=== PATIENT | female | born 1935 | race Caucasian/White ===

== ENCOUNTER → 2022-03-03 16:01 | Outpatient (CLI) | payer MEDICARE, SELFPAY ==
--- NOTE | ~2022-03-03 | XR_ITS ---
XR shoulder LT min 2V 03/03/2022 16:32 Indication: Pinched dementia syndrome of the shoulder. Procedure: 5 views left shoulder Comparison: No prior studies for comparison. 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 Osteopenia. No acute fra cture or traumatic malalignment. Visualized lung parenchyma is unremarkable. 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 Reviewed, dictated and finalized at location A. 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
== END ==
PROVIDERS: PCP Family Medicine; Visit Provider Family Medicine
DX: M75.42 Impingement syndrome of left shoulder (principal); M19.012 Primary osteoarthritis, left shoulder
CPT/HCPCS: 73030

== ENCOUNTER 2023-04-25 16:07 | Inpatient (IN) | payer MEDICARE, SELFPAY ==
[2023-04-25] VITALS (24 sets, daily range): BP systolic 131–174; BP diastolic 62–93; PULSE 61–87; RESP 14–22; TEMP 36.6–36.8; O2SAT 95–99; BMI 24.5
--- NOTE | ~2023-04-25 | XR_ITS ---
EXAMINATION: XR hip LT min 2V DATE: 04/30/2023 09:00 INDICATION: Fall. TECHNIQUE: 2 views of left hip were obtained. COMPARISON: Left hip radiographs 04/25/2023, 04/26/2023 FINDINGS: There is a subcapital fracture of left femoral neck. The distal fracture fragment demonstra fe impaction and valgus attenuation without change. There is internal fixation with 3 lag screws. Th ere is mild left hip osteoarthritis. IMPRESSION: 1. Subcapital fracture of left femoral neck status post screw fixation. 2. Mild left hip osteoarthritis. Reviewed, dictated and finalized at location A. ERSITY PRESIDENT
--- NOTE | ~2023-04-25 | CT_ITS ---
EXAMINATION: CT brain wo con DATE: 04/25/2023 16:42 INDICATION: Head injury. TECHNIQUE: Computed tomography (CT) of the head was performed without intravenous contrast. The mA wa s adjusted according to patient size. Iterative reconstruction technique was employed. The dose-lengt h product was 529.67 mGy-cm. COMPARISON: None FINDINGS: There is no intracranial hemorrhage, acute infarction, or abnormal intracranial mass lesion . There are scattered areas of low attenuation in the cerebral white matter. The ventricles are ang l in size. There are likely changes of right ocular lens replacement surgery. There is mild mucosal t hickening in the paranasal sinuses. The mastoid air cells are normal. IMPRESSION: 1. Moderate nonspecific cerebral white matter disease, which likely represents chronic small vessel i schemic disease. Reviewed, dictated and finalized at location A. DRIVING SETTER IMPRESSION: 1. Moderate nonspecific cerebral white matter disease, which likely represents chronic small vessel ischemic disease.
--- NOTE | ~2023-04-25 | XR_ITS ---
XR hip LT min 2V DATE: 04/25/2023 17:11 INDICATION: Fall. Left hip injury, pain TECHNIQUE: AP and crosstable lateral views of left hip COMPARISON: None FINDINGS: Minimally medially displaced impacted left subcapital femoral neck fracture. No evidence of left hip dislocation. Degenerative change but intact sacroiliac joints. Normal alignment at the pubic symphysis. IMPRESSION: Mildly impacted minimally medially displaced left subcapital femoral neck fracture Reviewed, dictated and finalized at location L. S AND MERCHANDISING ASSOCIATE IMPRESSION: Mildly impacted minimally medially displaced left subcapital femora l neck fracture
--- NOTE | ~2023-04-25 | XR_ITS ---
EXAMINATION: XR surgery orthopedic DATE: 04/26/2023 17:00 TICKET CHOPPER ASSEMBLER INDICATION: LEFT HIP PINNING . TECHNIQUE: 3 fluoroscopic images of the left hip were obtained during left hip pinning performed by emilio stewart surgeon. I was not present in the operating room. Fluoroscopy exposure time was 1 minute 47.2 seco nds. Air Kerma 17.466 mGy. DAP 0.3462 mGym2. COMPARISON: None FINDINGS: 3 cannulated screws fix the subcapital left femoral neck fracture into near-anatomic alignment. IMPRESSION: Fluoroscopic documentation of left hip pinning. Please refer to the operative note for complete proce dural details . Reviewed, dictated and finalized at location K. ET CHOPPER ASSEMBLER IMPRESSION: Fluoroscopic documentation of left hip pinning. Please refer to the operative n ote for complete procedural details .
--- NOTE | ~2023-04-25 | XR_ITS ---
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 RESULT: Lines, tubes, and devices: Cholecystectomy clips. Lungs and pleura: Clear. Cardiomediastinal silhouette: Stable. Other: No acute osseous or upper abdominal finding. IMPRESSION: No acute cardiopulmonary process. Reviewed, dictated and finalized at location K. WORKER HELPER
--- NOTE | ~2023-04-25 | XR_ITS ---
XR knee LT 3V DATE: 04/25/2023 16:59 INDICATION: Fall. Left knee pain. TECHNIQUE: 3 views including crosstable lateral COMPARISON: None FINDINGS: There is diffuse osteopenia. There is moderate to moderately severe tricompartment osteoarthritis, most severe at the lateral comp artment. No fracture or dislocation or significant joint effusion is evident. No periosteal reaction or bone d estruction is detected. Detail is limited but chondrocalcinosis is suggested. IMPRESSION: Tricompartment osteophytosis, particularly severe at the lateral compartment Diffuse osteopenia Suspected chondrocalcinosis No fracture or dislocation or joint effusion is detected Reviewed, dictated and finalized at location L. IFIED OPTICIAN IMPRESSION: Tricompartment osteophytosis, particularly severe at the lateral co mpartment Diffuse osteopenia Suspected chondrocalcinosis No fracture or dislocation or joint effusion is detected
--- NOTE | ~2023-04-25 | XR_ITS ---
. XR_RIBSBI_CR DATE: 04/25/2023 16:58 INDICATION: Fall 3 days ago. Bilateral rib pain. TECHNIQUE: COMPARISON: None FINDINGS: Diffuse osteopenia. Loss of height is noted at T6, T12 and L1 vertebral bodies, consistent with fractures, of uncertain a ge on this limited bilateral rib examination. Degenerative changes of the thoracic and particularly the lumbar spine. Severe glenohumeral osteoarthritis on the left, moderately severe on the right. No left or right rib fracture is detected. No pulmonary infiltrate or consolidation, pleural effusion or pneumothorax is detected. Normal heart size. Status post cholecystectomy. IMPRESSION: Fractures of undetermined age at T6, T12, L1 Degenerative changes of thoracic and lumbar spine Severe left and moderately severe right glenohumeral osteoarthritis Osteopenia No rib fracture is detected Status post cholecystectomy Reviewed, dictated and finalized at Location A. Reviewed, dictated and finalized at location L. BOY
--- NOTE | ~2023-04-25 | CT_ITS ---
EXAMINATION: CT pelvis wo con DATE: 04/25/2023 16:44 INDICATION: Patient fell 2 days ago. Left hip, pelvic pain TECHNIQUE: Computed tomography (CT) of the pelvis was performed without intravenous contrast. Automat ed exposure control and iterative reconstruction technique were employed. Exam dose: 264.76 mGy-cm t otal exam DLP. COMPARISON: None FINDINGS: Severe degenerative disc disease at L3-4, L4-5 and L5-S1. There is prominent degenerative change at the apophyseal joints with associated grade 1 anterolisthes is at L4-5 and L5-S1. There is degenerative change but no fracture or dislocation of the sacroiliac joints. The pubic symph ysis is intact. No pelvic fracture is detected. There is a mildly impacted virtually nondisplaced left subcapital femoral neck fracture. Moderate bilateral hip osteoarthritis. No hip dislocation is noted on either side. IMPRESSION: Mildly impacted virtually nondisplaced left subcapital femoral neck fracture Severe multilevel degenerative disc disease of the lumbar spine Grade 1 anterolisthesis at L4-5 and L5-S1 due to prominent degenerative change at the apophyseal join ts Reviewed, dictated and finalized at Location A. Reviewed, dictated and finalized at location L. ETING COMMUNITY LIAISON IMPRESSION: Mildly impacted virtually nondisplaced left subcapital femoral nec k fracture Severe multilevel degenerative disc disease of the lumbar spine Grade 1 anterolisthesis at L4-5 and L5-S1 due to prominent degenerative change at the apophyseal joints
--- NOTE | 2023-04-25 16:20 | ED.GENADULT ---
HPI - General Adult General Chief complaint: Fall <Geri Simms October - Last Filed: 04/25/23 16:23> Stated complaint: rib and leg pain r/t fall on monday <Geri Simms October - Last Filed: 04/25/23 16:23> Time Seen by Provider: 04/25/23 18:02 <Geri Simms October - Last Filed: 04/25/23 16:23> History of Present Illness HPI narrative: Tia Tirado is an 87 y/o female who presents wt family after a ground level fall 2 days ago. She was able to get up using a walker and limping to her chair. Family found out about the fall today and now she can barely put any weight on her left leg. Patient denies any LOC she states she fell on to the left side of her face and the left side of her body. <Geri Simms October, - Last Filed: 04/25/23 16:23> Tia Tirado is an 87 y/o female who presents with family after a ground level fall 2 days ago. She was able to get up using a walker and limping to her chair. Family found out about the fall today and now she can barely put any weight on her left leg. Patient denies any LOC she states she fell on to the left side of her face and the left side of her body. Patient denies any chest pain, shortness of breath, nausea, vomiting, abdominal pain, dysuria, hematuria, constipation, diarrhea, melena, hematochezia, fevers or chills. He also denies any headaches, dizziness, lightheadedness, blurry visions, dizziness, focal weakness, numbness and or tingling. There are no other modifying, alleviating, or precipitating factors at this time. <Dominik Dwyer MD - Last Filed: 04/25/23 18:57> Related Data Home medications: Home Medications Medication Instructions Recorded Confirmed aspirin 81 mg tablet,delayed 81 mg PO DAILY 06/09/19 11/17/22 release (Aspir-) <Geri Simms October - Last Filed: 04/25/23 16:23> Allergies/adverse reactions: Allergies Allergy/AdvReac Type Severity Reaction Status Date / Time shrimp Allergy Nausea and Verified 04/25/23 17:19 Vomiting <Geri iSmms October,N - Last Filed: 04/25/23 16:23> PMFSH Past Medical History Medical History: Medical History At risk for falls BMI 25.0-25.9,adult BMI 26.0-26.9,adult BMI 27.0-27.9,adult BMI 28.0-28.9,adult Impingement syndrome, shoulder, left Leg weakness, bilateral <Geri Simms October,N - Last Filed: 04/25/23 16:23> Family History Family History: Family History Other Acute myocardial infarction Family history of coronary artery disease <Geri Simms October, - Last Filed: 04/25/23 16:23> Social History Social History: Social History Smoking status: Never smoker Alcohol intake: never <Geri Simms October, - Last Filed: 04/25/23 16:23> Exam Narrative: General: Alert, awake, afebrile, in no acute distress. HEENT: PERRL, no rhinorrhea, no post nasal drip, oropharynx clear. Neck: Trachea midline, no JVD, no lymphadenopathy. Cardiovascular: Regular rate and rhythm, no murmurs, rubs or gallops, no peripheral edema. Respiratory: Clear to auscultation bilaterally, no tachypnea, no wheezing, no rhonchi, no rubs, no respiratory distress. Abdomen: Soft, nontender, nondistended, no rebound, no guarding, no peritoneal signs. Musculoskeletal: No joint swelling or deformity, normal muscle tone, decreased range of motion of the left lower extremity secondary to pain, intact left lower extremity DP and PT pulses, patient is neurovascularly intact. Back: No midline tenderness to palpation over the cervical, thoracic, and lumbar spine, no step-offs or deformities. Skin: No rashes or petechia, no signs of infection. Psychiatric: Alert and oriented, normal behavior and judgment for situation. Neurological: Alert and oriented to person, place, and time. Follows all commands. No focal deficits, speech is clear and fluent. <Naw
[2023-04-25 17:36] LABS: Basophils Percent Auto 0.4 % (0.2-1.2); Eosinophils Absolute Auto 0.1 K/mm3 (0-0.3); Eosinophils Percent Auto 0.8 % (0-4.4); Hematocrit 44.1 % (37.0-47.0); Hemoglobin 14.8 g/dL (12.0-15.0); Immature Granulocyte Absolute 0.04 K/mm3 (0.00-0.031); Immature Granulocyte Percent A 0.5 % (0-0.5); Lymphocytes Absolute Auto 0.88 K/mm3 (0.9-3.2); Lymphocytes Percent Auto 11.5 % (18.3-44.2); Mean Corpuscular HGB Conc 33.6 g/dl (32-36); Mean Corpuscular Hemoglobin 32.8 pg (26-34); Mean Corpuscular Volume 97.8 fl (80-100); Mean Platelet Volume 8.6 fl (7.4-10.4); Monocytes Absolute Auto 0.7 K/mm3 (0.1-0.6); Neutrophils Percent Auto 77.8 % (45.5-73.1); Platelet Count Result 164 k/mm3 (150-375); Red Blood Count 4.51 M/mm3 (4.2-5.4); Red Cell Distribution Width 12.7 % (11.5-14.5); White Blood Count 7.7 K/mm3 (4.5-10.0)
[2023-04-25 17:45] LABS: Alanine Aminotransferase 19 U/L (6-35); Albumin Level 4.4 g/dL (3.5-5.1); Alkaline Phosphatase 84 U/L (38-126); Anion Gap 10 mmol/L (8-16); Aspartate Amino Transferase 26 U/L (14-36); Bilirubin,Total 1.3 mg/dL (0.2-1.3); Blood Urea Nitrogen 12 mg/dL (7-17); Calcium 9.8 mg/dL (8.4-10.2); Carbon Dioxide 26 mmol/L (22-30); Chloride 100 mmol/L (98-107); Estimated CRCL calculation 49 ml/min; Estimated Glomerular Filt Rate > 60; Glucose 125 mg/dL (65-110); Potassium 4.4 mmol/L (3.4-5.0); Sodium 136 mmol/L (137-145)
--- NOTE | 2023-04-25 18:05 | ED.FALL ---
HPI - Fall General Chief Complaint: Fall Stated Complaint: rib and leg pain r/t fall on monday Time Seen by Provider: 04/25/23 18:02 History of Present Illness HPI Narrative: Patient is an 87-year-old female who presents to the emergency department this afternoon accompanied by her daughter due to a fall at home that occurred on Monday. Patient fell on her left side and was able to get herself back up and lip using her walker and got to a chair, however, she is able to put weight on her left lower extremity since then. She denies hitting her head, denies any loss of consciousness, and admits that the fall was purely mechanical and denies any syncopal or near syncopal episodes. Patient denies any chest pain, shortness of breath, nausea, vomiting, abdominal pain, dysuria, hematuria, constipation, diarrhea, melena, hematochezia, fevers or chills. He also denies any headaches, dizziness, lightheadedness, blurry visions, dizziness, focal weakness, numbness and or tingling. There are no other modifying, alleviating, or precipitating factors at this time. Related Data Home Medications Medication Instructions Recorded Confirmed acetaminophen 500 mg tablet 1,000 mg PO QID PRN Pain, Moderate 04/25/23 04/25/23 (Acetaminophen Extra Strength) amlodipine 5 mg-benazepril 40 mg 1 cap PO QAM 04/25/23 04/25/23 capsule atenolol 50 mg tablet 50 mg PO QAM 04/25/23 04/25/23 lorazepam 0.5 mg tablet 1 mg PO QHS anxiety 04/25/23 04/25/23 pravastatin 40 mg tablet 40 mg PO QAM 04/25/23 04/25/23 Allergies Allergy/AdvReac Type Severity Reaction Status Date / Time shrimp Allergy Nausea and Verified 04/25/23 17:19 Vomiting morphine AdvReac Nausea and Verified 04/25/23 22:21 Vomiting Review of Systems Review of Systems: All systems are reviewed and are negative unless stated otherwise in the HPI. [facility] Past Medical History Medical History At risk for falls BMI 25.0-25.9,adult BMI 26.0-26.9,adult BMI 27.0-27.9,adult BMI 28.0-28.9,adult Impingement syndrome, shoulder, left Leg weakness, bilateral Family History Family History Other Acute myocardial infarction Family history of coronary artery disease Social History Social History Smoking status: Never smoker Alcohol intake: never Substance use: never Lack of Transportation: No Lack of Food: Never True Current Housing: I Have Housing Concerned About Future Housing: No Difficulty Paying Gas/Electric Bills: No Difficulty Paying for Meds: No Currently Unemployed: No Education: Master's Degree or Higher Difficulty w/ Childcare or Family Care: No Spiritual care concerns: No Exam Narrative: General: Alert, awake, afebrile, in no acute distress. HEENT: PERRL, no rhinorrhea, no post nasal drip, oropharynx clear. Neck: Trachea midline, no JVD, no lymphadenopathy. Cardiovascular: Regular rate and rhythm, no murmurs, rubs or gallops, no peripheral edema. Respiratory: Clear to auscultation bilaterally, no tachypnea, no wheezing, no rhonchi, no rubs, no respiratory distress. Abdomen: Soft, nontender, nondistended, no rebound, no guarding, no peritoneal signs. Musculoskeletal: No joint swelling or deformity, normal muscle tone. Skin: No rashes or petechia, no signs of infection. Psychiatric: Alert and oriented, normal behavior and judgment for situation. Neurological: Alert and oriented to person, place, and time. Follows all commands. No focal deficits, speech is clear and fluent. Course Vital Signs Vital signs: Vital Signs Temperature 98.2 F 04/25/23 16:09 Pulse Rate 87 04/25/23 16:09 Respiratory Rate 18 04/25/23 16:09 Blood Pressure 156/93 H 04/25/23 16:09 Pulse Oximetry 97 04/25/23 16:09 Oxygen Delivery Room Air 04/25/23 16:09 Temperature 98.2 F
[2023-04-25] MEDS: ONDANSETRON INJ 4 MG/2 ML VIAL IV PUSH ×2 (18:18→18:59)
[2023-04-25] MEDS: MORPHINE SULFATE (*CRX) 2 MG/ML INJ IV PUSH (18:19)
--- NOTE | 2023-04-25 22:08 | ADMGEN ---
This patient, Tia Tirado, was admitted to [facility] Surg Room 332-02. Patient/family oriented to hospital policies and general routines including ID bracelet, bed and alarms, visiting hours, pain management, procedures, bathroom and other care routines, personal items, smoking policy, room service/diet, and visiting hours. Information on how to activate the Rapid Response Team has been discussed. Patient/Family are encouraged to report perceived risks to care and to ask questions if they do not understand what they are told or what they should do.
[2023-04-26] VITALS (13 sets, daily range): BP systolic 122–153; BP diastolic 56–82; PULSE 70–106; RESP 12–18; TEMP 35.9–37.3; O2SAT 95–100
--- NOTE | 2023-04-26 11:27 | PM.CNOR ---
Assessment and Plan Assessment and plan (1) Closed hip fracture: Qualifiers: Encounter type: initial encounter Laterality: left Qualified Code(s): S72.002A - Fracture of unspecified part of neck of left femur, initial encounter for closed fracture <MARCOS Vázquez - Last Filed: 04/26/23 12:20> Code(s): S72.009A - Fracture of unspecified part of neck of unspecified femur, initial encounter for closed fracture <MARCOS Vázquez - Last Filed: 04/26/23 12:20> Status: Acute <MARCOS Vázquez - Last Filed: 04/26/23 12:20> Assessment and Plan: Non displaced, valgus impacted fracture of the left hip femoral neck. Patient seen and examined. Radiographic images reviewed personally. Will benefit from percutaneous pinning of the left hip femoral neck fracture. We discussed the risks, benefits, and alternatives to surgery. <Satish Rivas MD - Last Filed: 04/26/23 16:17> History of Present Illness HPI Consult date: 04/26/23 <MARCOS Vázquez - Last Filed: 04/26/23 12:20> 04/26/23 <Satish Rivas MD - Last Filed: 04/26/23 16:17> Chief complaint: Lt hip fracture <MARCOS Vázquez - Last Filed: 04/26/23 12:20> Narrative: Patient fell Monday evening 04/23/23 in her home. She tripped on a TV tray and landed on her left side onto the carpet. She waited a few days before telling her daughter that she fell. She was able to get herself up and walk right after but the pain got worse. History of HTN and Anxiety. She typically lives at home by herself. She typically walks without assistance. No other complaints at this time. Little pain at rest. Patient's daughter states that she is a little confused from not getting up for a few days. She states she did not eat or drink much. Patient typically has no issues with her memory. <MARCOS Vázquez - Last Filed: 04/26/23 12:20> Review of Systems Review of Systems: All systems reviewed & are unremarkable except as noted in HPI and below <MARCOS Vázquez - Last Filed: 04/26/23 12:20> [facility] Past Medical History Medical History: Medical History At risk for falls BMI 25.0-25.9,adult BMI 26.0-26.9,adult BMI 27.0-27.9,adult BMI 28.0-28.9,adult Impingement syndrome, shoulder, left Leg weakness, bilateral <MARCOS Vázquez - Last Filed: 04/26/23 12:20> Family History Family History: Family History Other Acute myocardial infarction Family history of coronary artery disease <MARCOS Vázquez - Last Filed: 04/26/23 12:20> Social History Social History: Social History Smoking status: Never smoker Alcohol intake: never Substance use: never Lack of Transportation: No Lack of Food: Never True Current Housing: I Have Housing Concerned About Future Housing: No Difficulty Paying Gas/Electric Bills: No Difficulty Paying for Meds: No Currently Unemployed: No Education: Master's Degree or Higher Difficulty w/ Childcare or Family Care: No Spiritual care concerns: No <MARCOS Vázquez - Last Filed: 04/26/23 12:20> Meds Home Medications and Allergies Home medications: Home Medications Medication Instructions Recorded Confirmed Type acetaminophen 500 mg tablet 1,000 mg PO QID PRN Pain, Moderate 04/25/23 04/25/23 History (Acetaminophen Extra Strength) amlodipine 5 mg-benazepril 40 mg 1 cap PO QAM 04/25/23 04/25/23 History capsule atenolol 50 mg tablet 50 mg PO QAM 04/25/23 04/25/23 History lorazepam 0.5 mg tablet 1 mg PO QHS anxiety 04/25/23 04/25/23 History pravastatin 40 mg tablet 40 mg PO QAM 04/25/23 04/25/23 History <MARCOS Vázquez - Last Filed: 04/26/23 12:20> Allergies/Adverse reactions: Allergie
[2023-04-26] MEDS: LORazepam INJ (*CRX) 2 MG/ML VIAL 0.5 MG IV PUSH ×2 (11:29→23:21)
--- NOTE | 2023-04-26 14:50 | PC.NURSE ---
To OR via bed.
--- NOTE | 2023-04-26 15:14 | PM.IMHP ---
H&P: HPI History of Present Illness Date/Time: 04/26/23 15:14 Chief Complaint: Fall Narrative: 87 year old female fell at home over TV stand hit her L side of her body. Particularly her L rib and leg pain L/t fall on Monday. Pt carried on at home but the pain got so bad she came into ED for evaluation. Pt found to have Mildly impacted minimally medially displaced left subcapital femoral neck fracture? orthopedics consulted. CXR was nl, CT head shows moderate nonspecific cerebral white matter disease. 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 Pt has history of HTN takes lisinopril, PSH GB removal several years ago in 2019 Daughter at the bedside states she has a allergy to morphine. Pt gets nauseated and vomits when given morphine. Hypersensitive to morphine and prefers other pain medications in hospital. Review of Systems Review of Systems: L rib and L leg pain All other systems are reviewed and negative PMFSH Past Medical History Medical History At risk for falls BMI 25.0-25.9,adult BMI 26.0-26.9,adult BMI 27.0-27.9,adult BMI 28.0-28.9,adult Impingement syndrome, shoulder, left Leg weakness, bilateral Family History Family History Other Acute myocardial infarction Family history of coronary artery disease Social History Social History Smoking status: Never smoker Alcohol intake: never Substance use: never Lack of Transportation: No Lack of Food: Never True Current Housing: I Have Housing Concerned About Future Housing: No Difficulty Paying Gas/Electric Bills: No Difficulty Paying for Meds: No Currently Unemployed: No Education: Master's Degree or Higher Difficulty w/ Childcare or Family Care: No Spiritual care concerns: No Meds Home Medications and Allergies Home Medications Medication Instructions Recorded Confirmed Type acetaminophen 500 mg tablet 1,000 mg PO QID PRN Pain, Moderate 04/25/23 04/25/23 History (Acetaminophen Extra Strength) amlodipine 5 mg-benazepril 40 mg 1 cap PO QAM 04/25/23 04/25/23 History capsule atenolol 50 mg tablet 50 mg PO QAM 04/25/23 04/25/23 History lorazepam 0.5 mg tablet 1 mg PO QHS anxiety 04/25/23 04/25/23 History pravastatin 40 mg tablet 40 mg PO QAM 04/25/23 04/25/23 History Allergies Allergy/AdvReac Type Severity Reaction Status Date / Time shrimp Allergy Nausea and Verified 04/25/23 17:19 Vomiting morphine AdvReac Nausea and Verified 04/25/23 22:21 Vomiting Vital Signs Vital Signs - 24 hr 04/25/23 16:09 04/25/23 17:30 04/25/23 17:28 Temperature 36.8 C Pulse Rate 87 Respiratory Rate 18 20 Blood Pressure 156/93 H 155/77 H Pulse Oximetry 97 98 98 Oxygen Delivery Room Air 04/25/23 17:30 04/25/23 17:31 04/25/23 17:45 Temperature Pulse Rate Respiratory Rate Blood Pressure 155/77 H 158/82 H Pulse Oximetry 98 98 95 Oxygen Delivery 04/25/23 17:46 04/25/23 18:12 04/25/23 18:15 Temperature Pulse Rate Respiratory Rate Blood Pressure Pulse Oximetry 96 99 96 Oxygen Delivery 04/25/23 18:16 04/25/23 18:30 04/25/23 18:31 Temperature Pulse Rate 83 81 Respiratory Rate 20 18 Blood Pressure 174/78 H 165/74 H Pulse Oximetry 98 98 97 Oxygen Delivery 04/25/23 18:32 04/25/23 18:45 04/25/23 18:46 Temperature Pulse Rate 76 75 75 Respiratory Rate 14 16 22 H Blood Pressure Pulse Oximetry 96 99 99 Oxygen Delivery 04/25/23 19:00 04/25/23 19:01 04/25/23 19:09 Temperature Pulse Rate 65 67 64 Respiratory Rate 18 20 17 Blood Pressure Pulse Oximetry 97 96 97 Oxygen Delivery 04/25/23 19:28 04/25/23 19:52 04/25/23 20:00 Temperature Pulse Rate 64 62 66 Respiratory Rate 21 H 18 17 Blood Pressure 131/62 Pulse Oximetry Oxygen Delivery 04/25/23 20:
--- NOTE | 2023-04-26 16:17 | WPDHPUPDATE1 ---
History and Physical Update Update Date/Time: 04/26/23 16:17 History and Physical has been reviewed, including an updated exam of the patient. There are NO changes in the patient's condition. Risks, benefits, and alternatives have been discussed and questions answered. Patient agrees to proceed with procedure.
--- NOTE | 2023-04-26 16:26 | WPDANESEPPF ---
Anes - Initial Pre Proc Eval Procedure: Operation Date: 04/26/23 15:30 Proposed Procedures p Left Hip Pinning - Satish Rivas MD Date/Time: 04/26/23 16:26 Surgeon: Teresa Martino MD Pre Op Diagnosis: Lt hip fracture Patient Data Age: 87 Gender: F Height: 1.52 m Weight: 57.1 kg Last Vital Signs Temp 37.3 C 04/26/23 15:08 Pulse 101 H 04/26/23 15:08 Resp 16 04/26/23 15:08 BP 135/81 04/26/23 15:08 Pulse Ox 96 04/26/23 15:08 O2 Del Method Room Air 04/26/23 15:08 Allergies Allergy/AdvReac Type Severity Reaction Status Date / Time shrimp Allergy Nausea and Verified 04/25/23 17:19 Vomiting morphine AdvReac Nausea and Verified 04/25/23 22:21 Vomiting Home Medications Medication Instructions Recorded Confirmed Type acetaminophen 500 mg tablet 1,000 mg PO QID PRN Pain, Moderate 04/25/23 04/25/23 History (Acetaminophen Extra Strength) amlodipine 5 mg-benazepril 40 mg 1 cap PO QAM 04/25/23 04/25/23 History capsule atenolol 50 mg tablet 50 mg PO QAM 04/25/23 04/25/23 History lorazepam 0.5 mg tablet 1 mg PO QHS anxiety 04/25/23 04/25/23 History pravastatin 40 mg tablet 40 mg PO QAM 04/25/23 04/25/23 History Laboratory Tests 04/25/23 17:28 WBC 7.7 K/mm3 (4.5-10.0) RBC 4.51 M/mm3 (4.2-5.4) Hgb 14.8 g/dL (12.0-15.0) Hct 44.1 % (37.0-47.0) MCV 97.8 fl (80-100) MCH 32.8 pg (26-34) MCHC 33.6 g/dl (32-36) RDW 12.7 % (11.5-14.5) Plt Count 164 k/mm3 (150-375) MPV 8.6 fl (7.4-10.4) Immature Gran % (Auto) 0.5 % (0-0.5) Neut % (Auto) 77.8 H % (45.5-73.1) Lymph % (Auto) 11.5 L % (18.3-44.2) [place] % (Auto) 9.0 H % (2.6-8.5) Eos % (Auto) 0.8 % (0-4.4) Baso % (Auto) 0.4 % (0.2-1.2) Lymph # (Auto) 0.88 L K/mm3 (0.9-3.2) [place] # (Auto) 0.7 H K/mm3 (0.1-0.6) Eos # (Auto) 0.1 K/mm3 (0-0.3) Baso # (Auto) 0.0 K/mm3 (0.0-0.1) Abs Immat Gran (auto) 0.04 H K/mm3 (0.00-0.031) Absolute Neuts (auto) 6.0 K/mm3 (1.3-6.7) Absolute Nucleated RBC 0.0 K/mm3 (0.0-0.012) Nucleated RBC % 0.0 % (0.0-0.2) Sodium 136 L mmol/L (137-145) Potassium 4.4 mmol/L (3.4-5.0) Chloride 100 mmol/L (98-107) Carbon Dioxide 26 mmol/L (22-30) Anion Gap 10 mmol/L (8-16) BUN 12 mg/dL (7-17) Creatinine 0.50 L mg/dL (0.7-1.0) Estim Creat Clear Calc 49 ml/min Estimated GFR > 60 (59 - ) Glucose 125 H mg/dL (65-110) Calcium 9.8 mg/dL (8.4-10.2) Total Bilirubin 1.3 mg/dL (0.2-1.3) AST 26 U/L (14-36) ALT 19 U/L (6-35) Alkaline Phosphatase 84 U/L (38-126) Total Protein 8.0 g/dL (6.3-8.2) Albumin 4.4 g/dL (3.5-5.1) Blood Type A Positive Antibody Screen Negative Patient hx anesthesia problems: none Family hx anesthesia problems: none Results Review: All pre-operative results and documents have been reviewed as part of the pre-operative evaluation. [facility] Past Medical History Medical History At risk for falls BMI 25.0-25.9,adult BMI 26.0-26.9,adult BMI 27.0-27.9,adult BMI 28.0-28.9,adult Impingement syndrome, shoulder, left Leg weakness, bilateral Family History Family History Other Acute myocardial infarction Family history of coronary artery disease Social History Social History Smoking status: Never smoker Alcohol intake: never Substance use: never Lack of Transportation: No Lack of Food: Never True Current Housing: I Have Housing Concerned About Future Housing: No Difficulty Paying Gas/Electric Bills: No Difficulty Paying for Meds: No Currently Unemployed: No Education: Master's Degree or Higher Difficulty w/ Childcare or Family Care: No Spiritual care con
--- NOTE | 2023-04-26 16:42 | P.OP_ITS ---
Procedure Note - Detailed Date of Procedure 04/26/23 Pre-op Diagnosis Left hip non displace, valgus impacted femoral neck fracture Post-op Diagnosis Same Procedure Performed Closed reduction, percutaneous pinning left hip femoral neck fracture with cannulated screws. Surgeon Satish Rivas MD Anesthesia General Description of Procedure Preoperative antibiotics were given. The patient was brought to the operating room. In general anesthetic was administered. The patient was carefully placed on the fracture table. By planar fluoroscopy was used to confirm maintenance of reduction and treatment of reduction as necessary. The hip was prepped and draped in usual sterile fashion with a sterile curtain. A stab incision was created at the inferior trochanter. The guide pin was placed into the center of the femoral neck inferiorly. Two additional guide pins were placed superiorly were inverted triangle shape. Measurements were taken and the outer cortex was drilled. Three partially-threaded cannulated screws were placed. The crease incisions were closed with interrupted 4-0 Monocryl suture followed by Steri- Strips. The sterile dressing was applied. The patient was transferred to the recovery room in stable condition and extubated. There were no complications. Implants 7.0 mm Arthrex cannulated screws x 3. Estimated Blood Loss 1 Drains No Pathology None sent Complications No immediate complications Condition Stable Disposition PACU [facility] Billing Surgery - Charge Forward: Surgery Billing
[2023-04-26] MEDS: ceFAZolin 2 GM/D5W 50 ML 2 GM/50 ML BAG IVPB (16:45)
[2023-04-26] MEDS: TRANEXAMIC ACID 1,000MG/ISO100 1,000 MG/100 ML BAG 200 MG IVPB (17:01)
[2023-04-26] MEDS: BUPIVACAINE/EPINEPHRINE 0.5% 50 ML VIAL 20 ML INFILTRATE (17:14)
[2023-04-26] MEDS: LACTATED RINGERS 1,000 ML 30 ML IV CONT (17:48)
--- NOTE | 2023-04-26 18:50 | PC.NURSE ---
Back from OR via bed.
[2023-04-26] MEDS: SODIUM CHLORIDE 0.9% IV 1,000 ML 125 ML IV CONT (20:17)
[2023-04-26] MEDS: ceFAZolin 1 GM/NS 50 ML 1 GM/50 ML BAG IVPB (23:46)
[2023-04-27] VITALS: BP 168/88; PULSE 110; RESP 18; TEMP 36.6; O2SAT 94
[2023-04-27 04:00] VITALS: BP 162/79; PULSE 133; RESP 14; TEMP 37; O2SAT 94
[2023-04-27 08:43] VITALS: BP 153/84; PULSE 120; RESP 18; TEMP 37.4; O2SAT 91
[2023-04-27] MEDS: lisinopriL 20 MG TABLET 40 MG BY MOUTH (10:27)
[2023-04-27] MEDS: atenoloL 50 MG TABLET PO (10:27)
[2023-04-27] MEDS: ceFAZolin 1 GM/NS 50 ML 1 GM/50 ML BAG IVPB ×2 (10:27→16:55)
[2023-04-27] MEDS: amLODIPine BESYLATE 5 MG TABLET BY MOUTH (10:28)
--- NOTE | 2023-04-27 10:30 | PM.PNORT ---
Progress Note: A&P Assessment and Plan (1) Closed hip fracture: Qualifiers: Encounter type: initial encounter Laterality: left Qualified Code(s): S72.002A - Fracture of unspecified part of neck of left femur, initial encounter for closed fracture Code(s): S72.009A - Fracture of unspecified part of neck of unspecified femur, initial encounter for closed fracture Status: Acute Assessment and Plan: POD #1 Closed reduction, percutaneous pinning left hip femoral neck fracture with cannulated screws. Patient tolerated procedure well. She had some issues with confusion last night. Today she is very adamant that she only takes her regular home medications. Will start her on low dose aspiring twice daily for DVT prophylaxis. She states she typically takes one a day, however that is not on her medication list. May start PT/OT. Partial weight bearing with a walker. I recommend she be discharged to rehab. Her goal is to return home where she lives by her self. Ortho instructions: (DOS: 04/26/23) D/C to SNF/rehab Follow up in office in 4 weeks with xrays. Wound Care: Remove Mepilex dressing at 7 days post op. Remove steristrips at 14 days post op. May shower. No soaking. PT: Partial weight bearing with a walker. DVT prophylaxis: ASA 81 mg BID for 2 weeks then resume one per day dose. Pain medication: Tylenol. Subjective Subjective Date/Time Seen: 04/27/23 10:30 Interval history: Patient resting comfortably in a chair at the time of my visit. No pain at rest. Minimal calf tenderness. No swelling. No thigh pain. No other complaints. Review of Systems Review of Systems: All systems reviewed & are unremarkable except as noted in HPI and below Exam Narrative: 87 y/o normal weight female. Patient is alert and oriented x4. Resting comfortably in bed. No acute distress. dressing dry and intact without drainage. No erythema or ecchymosis. No rashes or lesions noted. Warm, normal appearing skin. Mild Tenderness at left hip. No deformity. Calf nontender. Distal pulses palpable. Normal capillary refill. Patient able to move and wiggle toes. Light touch sensation intact. Objective Data Vital Signs Vital Signs: Vital Signs - 24 hr 04/26/23 15:08 04/26/23 17:48 04/26/23 18:00 Temperature 99.2 F 98.6 F Pulse Rate 101 H 106 H 77 Respiratory Rate 16 12 12 Blood Pressure 135/81 153/70 H 122/56 L Pulse Oximetry 96 99 100 Oxygen Delivery Room Air Simple Face Mask Simple Face Mask Oxygen Flow Rate 8 8 04/26/23 18:10 04/26/23 18:15 04/26/23 18:30 Temperature Pulse Rate 93 94 Respiratory Rate 14 18 Blood Pressure 136/69 124/62 Pulse Oximetry 98 96 96 Oxygen Delivery Room Air Room Air Room Air Oxygen Flow Rate 04/26/23 18:40 04/26/23 18:50 04/26/23 19:05 Temperature 97.7 F 98 F Pulse Rate 92 97 96 Respiratory Rate 14 16 16 Blood Pressure 134/68 151/65 H 143/67 H Pulse Oximetry 95 95 96 Oxygen Delivery Room Air Oxygen Flow Rate 04/26/23 19:35 04/26/23 20:35 04/27/23 00:00 Temperature 97.2 F L 97 F L 97.8 F Pulse Rate 93 91 110 H Respiratory Rate 14 14 18 Blood Pressure 144/71 H 140/76 168/88 H Pulse Oximetry 98 95 94 Oxygen Delivery Oxygen Flow Rate 04/26/23 20:00 04/27/23 04:00 04/27/23 08:51 Temperature 98.6 F Pulse Rate 133 H Respiratory Rate 14 Blood Pressure 162/79 H Pulse Oximetry 94 Oxygen Delivery Room Air Room Air Oxygen Flow Rate 04/27/23 08:43 Temperature 99.4 F Pulse Rate 120 H Respiratory Rate 18 Blood Pressure 153/84 H Pulse Oximetry 91 Oxygen Delivery Oxygen Flow Rate Intake/Output Intake/Output: Intake & Output 04/24/23 04/25/23 04/26/23 04/27/23 23:59 23:59 23:59 23:59 Intake Total 300 200 Output Total 425 950 Balance -125 -750 Meds/Results Medications: Active Medications Generic Name Dose Route Start Last Admin Trade Name Freq PRN Reason Stop Dose Admin Amlodipine
--- NOTE | 2023-04-27 11:16 | WPDANESPN ---
Anes - Prog Note Post-Op Date/Time: 04/27/23 11:16 Cardiovascular status: normal Respiratory status: normal Airway patency: baseline Mental status: baseline Post-Op hydration status: normal Vital Signs: Last Vital Signs Temp 37.4 C 04/27/23 08:43 Pulse 120 H 04/27/23 08:43 Resp 18 04/27/23 08:43 BP 153/84 H 04/27/23 08:43 Pulse Ox 91 04/27/23 08:43 O2 Del Method Room Air 04/27/23 08:51 O2 Flow Rate 8 04/26/23 18:00 Pain Score (VAS): 2/10 I/O: Intake & Output 04/26/23 04/27/23 04/27/23 23:59 07:59 15:59 Intake Total 300 200 Output Total 950 Balance 300 -750 Laboratory Tests 04/25/23 17:28 04/25/23 17:28 Post-procedural complaints: none Patient Feedback: Patient satisfied with anesthetic care.
[2023-04-27 12:26] VITALS: BP 150/85; PULSE 94; RESP 16; TEMP 36.8; O2SAT 95
--- NOTE | 2023-04-27 14:01 | PM.IMPN ---
Progress Note: A&P Assessment and Plan (1) Closed hip fracture: Qualifiers: Encounter type: initial encounter Laterality: left Qualified Code(s): S72.002A - Fracture of unspecified part of neck of left femur, initial encounter for closed fracture Code(s): S72.009A - Fracture of unspecified part of neck of unspecified femur, initial encounter for closed fracture Status: Acute Assessment and Plan: Accidental fall on the L side XRay shows - Mildly impacted minimally medially displaced left subcapital femoral neck fracture? sp Closed reduction, percutaneous pinning left hip femoral neck fracture with cannulated screws. (2) Falls: Qualifiers: Encounter type: initial encounter Qualified Code(s): W19.XXXA - Unspecified fall, initial encounter Code(s): W19.XXXA - Unspecified fall, initial encounter Status: Acute Assessment and Plan: PT/ OT Pain control Pt has allergies to morphine sp Closed reduction, percutaneous pinning left hip femoral neck fracture with cannulated screws. 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 on this (3) Essential (primary) hypertension: Code(s): I10 - Essential (primary) hypertension Status: Acute Assessment and Plan: BP stable on lisinopril Plan DVT prop ASA Subjective Date/time seen: 04/27/23 14:01 Interval history: Pt pod day 1 doing well sitting in chair No specific complaints sp left subcapital femoral neck pinning Bp is 150/85 today Pt requesting to go to rehab once she is better Review of Systems Review of Systems: L rib and L leg pain All systems reviewed & are unremarkable except as noted in HPI and below Constitutional: Constitutional: Denies excessive sweating, Denies fatigue, Denies frequent falls and Denies headache(s) ENT: Denies headache(s) Cardiovascular: Cardiovascular: Denies chest pain, Denies irregular heart rhythm, Denies dyspnea and Denies dyspnea on exertion Respiratory: Respiratory: Denies cough, Denies hemoptysis, Denies dyspnea, Denies dyspnea on exertion and Denies wheezing Gastrointestinal: Gastrointestinal: Denies abdominal pain and Denies change in bowel habits Musculoskeletal: Comments: SP closed reduction, percutaneous pinning left hip femoral neck fracture with cannulated screws. Neurologic: Denies frequent falls, Denies headache(s), Denies numbness and Denies convulsions Psychiatric: Psychiatric: Denies hallucinations and Denies tactile hallucinations Endocrine: Endocrine: Denies excessive sweating, Denies fatigue and Denies flushing Allergic/Immunologic: Allergic/Immunologic: Denies wheezing Exam Const: General: cooperative, healthy appearing and overweight; No in distress Nutritional Appearance: overweight Orientation/consciousness: oriented to person HENMT: Head: normal to inspection Resp: Effort & Inspection: no respiratory distress Auscultation: no rhonchi and no wheezes Cardio: Rate: regular rate Rhythm: regular rhythm GI: Inspection: normal to inspection Auscultation: normal bowel sounds Neuro: General: oriented to person Extrem: Other: Severe L hip pain Objective Data Vital Signs Vital Signs: Vital Signs - 24 hr 04/26/23 15:08 04/26/23 17:48 04/26/23 18:00 Temperature 37.3 C 37.0 C Pulse Rate 101 H 106 H 77 Respiratory Rate 16 12 12 Blood Pressure 135/81 153/70 H 122/56 L Pulse Oximetry 96 99 100 Oxygen Delivery Room Air Simple Face Mask Simple Face Mask Oxygen Flow Rate 8 8 04/26/23 18:10 04/26/23 18:15 04/26/23 18:30 Temperature Pulse Rate 93 94 Respiratory Rate 14 18 Blood Pressure 136/69 124/62 Pulse Oximetry 98 96 96 Oxygen Delivery Room Air Room Air Room Air Oxygen Flow Rate 04/26/23 18:40 04/26/23 18:50 04/26/23 19:05 Temperature 36.5 C 36.6 C Pulse Rate 92 97 96 Respiratory Rate 14 16 16 Blood Pressure 134/68 151/65 H 143/67 H Pulse Oximetry 95
[2023-04-27] MEDS: ASPIRIN 81 MG ENTERIC TABLET PO (16:55)
[2023-04-27 22:00] VITALS: BP 129/73; PULSE 84; RESP 14; TEMP 36.5; O2SAT 94
[2023-04-27] MEDS: LORazepam INJ (*CRX) 2 MG/ML VIAL 0.5 MG IV PUSH (23:13)
[2023-04-27] MEDS: KETOROLAC 15 MG/ML VIAL (*BKC) IV PUSH (23:13)
[2023-04-28 06:00] VITALS: BP 136/73; PULSE 78; RESP 20; TEMP 36.1; O2SAT 99
--- NOTE | 2023-04-28 06:53 | PC.NURSE ---
pt has not voided yet after catheter removal around 2300 last night, though patient has not had much intake this shift. pt bladder scanned and found to only have 5mL in bladder
[2023-04-28] MEDS: SENNA/DOCUSATE SODIUM TABLET 2 TAB PO ×2 (08:58→17:20)
[2023-04-28 09:02] VITALS: PULSE 96
[2023-04-28] MEDS: atenoloL 50 MG TABLET PO (09:02)
[2023-04-28] MEDS: ASPIRIN 81 MG ENTERIC TABLET PO ×2 (09:02→17:20)
[2023-04-28] MEDS: lisinopriL 20 MG TABLET 40 MG BY MOUTH (09:04)
[2023-04-28] MEDS: polyethylene glycoL 3350 17 GM POWD.PACK PO (09:04)
[2023-04-28] MEDS: amLODIPine BESYLATE 5 MG TABLET BY MOUTH (09:04)
--- NOTE | 2023-04-28 13:05 | PM.PNORT ---
Progress Note: A&P Assessment and Plan (1) Closed hip fracture: Qualifiers: Encounter type: initial encounter Laterality: left Qualified Code(s): S72.002A - Fracture of unspecified part of neck of left femur, initial encounter for closed fracture Code(s): S72.009A - Fracture of unspecified part of neck of unspecified femur, initial encounter for closed fracture Status: Acute Assessment and Plan: POD #2 Closed reduction, percutaneous pinning left hip femoral neck fracture with cannulated screws. Patient sleeping at the time of my visit. Spoke with patients daughter. Patient is having increased sundowning and confusion at night. That is not typical for her. We discussed her recovery. I recommend she go to rehab before returning home. Daughter would like her to go to her house before returning home. I agree. Continue PT/OT. Partial weight bearing with a walker. Ortho instructions: (DOS: 04/26/23) D/C to SNF/rehab Follow up in office in 4 weeks with xrays. Wound Care: Remove Mepilex dressing at 7 days post op. Remove steristrips at 14 days post op. May shower. No soaking. PT: Partial weight bearing with a walker. DVT prophylaxis: ASA 81 mg BID for 2 weeks then resume one per day dose. Pain medication: Tylenol. Subjective Subjective Date/Time Seen: 04/28/23 13:05 Interval history: Patient sleeping at the time of my visit. Spoke with patient's daughter. Patient had some sundowning and confusion last night. She had a had time getting to sleep. She is very concerned about going to a prison or rehab. Review of Systems Review of Systems: ROS unobtainable: Yes other (Patient sleeping. Daughter states patient has had increased confusion. ) Exam Narrative: 87 y/o normal weight female. Resting comfortably in bed. Sleeping. No acute distress. Dressing dry and intact without drainage. No erythema or ecchymosis. No rashes or lesions noted. Warm, normal appearing skin. No deformity. No distal swelling. Distal pulses palpable. Normal capillary refill. Objective Data Vital Signs Vital Signs: Vital Signs - 24 hr 04/27/23 20:00 04/27/23 22:00 04/28/23 06:00 Temperature 97.7 F 97.0 F L Pulse Rate 84 78 Respiratory Rate 14 20 Blood Pressure 129/73 136/73 Pulse Oximetry 94 99 Oxygen Delivery Room Air 04/28/23 09:02 04/28/23 09:00 Temperature Pulse Rate 96 Respiratory Rate Blood Pressure Pulse Oximetry Oxygen Delivery Room Air Intake/Output Intake/Output: Intake & Output 04/25/23 04/26/23 04/27/23 04/28/23 23:59 23:59 23:59 23:59 Intake Total 300 730 200 Output Total 425 1650 75 Balance -125 -920 125 Meds/Results Medications: Active Medications Generic Name Dose Route Start Last Admin Trade Name Freq PRN Reason Stop Dose Admin Amlodipine Besylate 5 mg 04/27/23 09:00 04/28/23 09:04 Amlodipine Besylate 5 Mg Tablet BY MOUTH 5 mg QAM JOSE Administration Aspirin 81 mg 04/27/23 17:00 04/28/23 09:02 Aspirin 81 Mg Enteric Tablet PO 81 mg BID JOSE Administration Atenolol 50 mg 04/27/23 09:00 04/28/23 09:02 Atenolol 50 Mg Tablet PO 50 mg QAM JOSE Administration Fentanyl Citrate 25 mcg 04/26/23 16:26 Fentanyl Citrate Inj (*Crx) 100 Mcg/2 Ml Vial IV PUSH Q2M PRN Pain Ketorolac Tromethamine 15 mg 04/26/23 12:04 04/27/23 23:13 Ketorolac 15 Mg/Ml Vial (*Bkc) IV PUSH 15 mg Q6H PRN Administration Pain Rated 4-6 Lisinopril 40 mg 04/27/23 09:00 04/28/23 09:04 Lisinopril 20 Mg Tablet BY MOUTH 40 mg QAM JOSE Administration Lorazepam 0.5 mg 04/26/23 11:05 04/27/23 23:13 Lorazepam Inj (*Crx) 2 Mg/Ml Vial IV PUSH 0.5 mg Q8H PRN Administration Anxiety Naloxone HCl 0.1 mg 04/26/23 18:58 Naloxone Hcl 0.4 Mg/Ml Vial IV PUSH Q2M PRN Opiate Reversal Ondansetron HCl 4 mg 04/26/23 16:26 Ondansetron Inj 4 Mg/2 Ml Vial IV PUSH ONCE PRN
[2023-04-28 14:00] VITALS: BP 124/70; PULSE 79; RESP 18; TEMP 36.9; O2SAT 94
--- NOTE | 2023-04-28 15:12 | PM.IMPN ---
Progress Note: A&P Assessment and Plan (1) Closed hip fracture: Qualifiers: Encounter type: initial encounter Laterality: left Qualified Code(s): S72.002A - Fracture of unspecified part of neck of left femur, initial encounter for closed fracture Code(s): S72.009A - Fracture of unspecified part of neck of unspecified femur, initial encounter for closed fracture Status: Acute Assessment and Plan: Accidental fall on the L side XRay shows - Mildly impacted minimally medially displaced left subcapital femoral neck fracture? sp Closed reduction, percutaneous pinning left hip femoral neck fracture with cannulated screws on 04/26/23. DVT prophylaxis aspirin 81 b.i.d. for 2 weeks then 1 per day for orthopedics Awaiting SNF placement Follow-up with Orthopedics (2) Falls: Qualifiers: Encounter type: initial encounter Qualified Code(s): W19.XXXA - Unspecified fall, initial encounter Code(s): W19.XXXA - Unspecified fall, initial encounter Status: Acute Assessment and Plan: PT/ OT Pain control Pt has allergies to morphine sp Closed reduction, percutaneous pinning left hip femoral neck fracture with cannulated screws. 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 Feeling well. No nausea vomiting. Pain is controlled. Review of Systems Review of Systems: All systems reviewed & are unremarkable except as noted in HPI and below Exam Narrative: GENERAL: The patient is well developed, not in acute distress HEENT: Nonicteric sclerae, PERRLA, EOMI. Oropharynx clear. Moist mucous membranes. Conjunctivae appear well perfused. CHEST: Chest wall is nontender. HEART: Regular rate and rhythm without murmur, rubs, or gallops LUNGS: Clear to auscultation bilaterally. no respiratory distress ABDOMEN: Soft, positive bowel sounds, non-tender, no organomegaly. SKIN: No rash, no excessive bruising, petechiae, or purpura. NEUROLOGIC: Cranial nerves II-XII intact, alert and oriented x 3, no gross motor deficits EXTREMITIES: no edema, cyanosis or clubbing left hip with dressing which is clean dry and intact Objective Data Vital Signs Vital Signs: Vital Signs - 24 hr 04/27/23 20:00 04/27/23 22:00 04/28/23 06:00 Temperature 97.7 F 97.0 F L Pulse Rate 84 78 Respiratory Rate 14 20 Blood Pressure 129/73 136/73 Pulse Oximetry 94 99 Oxygen Delivery Room Air 04/28/23 09:02 04/28/23 09:00 Temperature Pulse Rate 96 Respiratory Rate Blood Pressure Pulse Oximetry Oxygen Delivery Room Air Intake/Output Intake/Output: Intake & Output 04/25/23 04/26/23 04/27/23 04/28/23 23:59 23:59 23:59 23:59 Intake Total 300 730 200 Output Total 425 1650 75 Balance -125 -920 125 Meds/Results Medications: Active Medications Generic Name Dose Route Start Last Admin Trade Name Jaimeq PRN Reason Stop Dose Admin Amlodipine Besylate 5 mg 04/27/23 09:00 04/28/23 09:04 Amlodipine Besylate 5 Mg Tablet BY MOUTH 5 mg QAM JOSE Administration Aspirin 81 mg 04/27/23 17:00 04/28/23 09:02 Aspirin 81 Mg Enteric Tablet PO 81 mg BID JOSE Administration Atenolol 50 mg 04/27/23 09:00 04/28/23 09:02 Atenolol 50 Mg Tablet PO 50 mg QAM JOSE Administration Fentanyl Citrate 25 mcg 04/26/23 16:26 Fentanyl Citrate Inj (*Crx) 100 Mcg/2 Ml Vial IV PUSH Q2M PRN Pain Ketorolac Tromethamine 15 mg 04/26/23 12:04 04/27/23 23:13 Ketorolac 15 Mg/Ml Via
[2023-04-28 20:00] VITALS: PULSE 79; RESP 18; O2SAT 94
[2023-04-28 21:21] VITALS: BP 112/82; PULSE 85; RESP 18; TEMP 36.5; O2SAT 94
[2023-04-28] MEDS: LORazepam (*CRX) 0.5 MG TABLET PO (22:46)
[2023-04-28 23:14] VITALS: O2SAT 94
[2023-04-29 05:56] VITALS: BP 131/68; PULSE 76; RESP 14; TEMP 36.2; O2SAT 94
[2023-04-29 07:04] LABS: Basophils Percent Auto 0.3 % (0.2-1.2); Eosinophils Absolute Auto 0.2 K/mm3 (0-0.3); Hematocrit 34.8 % (37.0-47.0); Hemoglobin 11.7 g/dL (12.0-15.0); Immature Granulocyte Absolute 0.04 K/mm3 (0.00-0.031); Immature Granulocyte Percent A 0.5 % (0-0.5); Lymphocytes Absolute Auto 1.13 K/mm3 (0.9-3.2); Lymphocytes Percent Auto 14.3 % (18.3-44.2); Mean Corpuscular HGB Conc 33.6 g/dl (32-36); Mean Platelet Volume 8.8 fl (7.4-10.4); Monocytes Absolute Auto 0.9 K/mm3 (0.1-0.6); Monocytes Percent Auto 11.6 % (2.6-8.5); Neutrophils Absolute Auto 5.6 K/mm3 (1.3-6.7); Neutrophils Percent Auto 71.3 % (45.5-73.1); Platelet Count Result 158 k/mm3 (150-375); Red Blood Count 3.55 M/mm3 (4.2-5.4); Red Cell Distribution Width 12.2 % (11.5-14.5); White Blood Count 7.9 K/mm3 (4.5-10.0)
[2023-04-29 07:09] LABS: Alanine Aminotransferase 25 U/L (6-35); Albumin Level 3.2 g/dL (3.5-5.1); Alkaline Phosphatase 93 U/L (38-126); Anion Gap 8 mmol/L (8-16); Aspartate Amino Transferase 32 U/L (14-36); Bilirubin,Total 0.9 mg/dL (0.2-1.3); Blood Urea Nitrogen 18 mg/dL (7-17); Calcium 8.6 mg/dL (8.4-10.2); Carbon Dioxide 27 mmol/L (22-30); Chloride 100 mmol/L (98-107); Estimated CRCL calculation 42 ml/min; Estimated Glomerular Filt Rate > 60; Glucose 102 mg/dL (65-110); Magnesium 1.7 mg/dL (1.6-2.3); Potassium 3.4 mmol/L (3.4-5.0); Sodium 135 mmol/L (137-145)
[2023-04-29 08:43] VITALS: PULSE 92
[2023-04-29] MEDS: atenoloL 50 MG TABLET PO (08:43)
[2023-04-29] MEDS: lisinopriL 20 MG TABLET 40 MG BY MOUTH (08:44)
[2023-04-29] MEDS: amLODIPine BESYLATE 5 MG TABLET BY MOUTH (08:44)
[2023-04-29] MEDS: polyethylene glycoL 3350 17 GM POWD.PACK PO (08:44)
[2023-04-29] MEDS: ASPIRIN 81 MG ENTERIC TABLET PO ×2 (08:44→17:12)
[2023-04-29] MEDS: SENNA/DOCUSATE SODIUM TABLET 2 TAB PO ×2 (08:44→17:12)
[2023-04-29] MEDS: ACETAMINOPHEN 325 MG TABLET 650 MG PO (10:22)
[2023-04-29 14:00] VITALS: BP 117/58; PULSE 71; RESP 16; TEMP 36.1; O2SAT 94
--- NOTE | 2023-04-29 14:23 | PM.IMPN ---
Progress Note: A&P Assessment and Plan (1) Closed hip fracture: Qualifiers: Encounter type: initial encounter Laterality: left Qualified Code(s): S72.002A - Fracture of unspecified part of neck of left femur, initial encounter for closed fracture Code(s): S72.009A - Fracture of unspecified part of neck of unspecified femur, initial encounter for closed fracture Status: Acute Assessment and Plan: Accidental fall on the L side XRay shows - Mildly impacted minimally medially displaced left subcapital femoral neck fracture? sp Closed reduction, percutaneous pinning left hip femoral neck fracture with cannulated screws on 04/26/23. DVT prophylaxis aspirin 81 b.i.d. for 2 weeks then 1 per day for orthopedics Awaiting SNF placement Follow-up with Orthopedics (2) Falls: Qualifiers: Encounter type: initial encounter Qualified Code(s): W19.XXXA - Unspecified fall, initial encounter Code(s): W19.XXXA - Unspecified fall, initial encounter Status: Acute Assessment and Plan: PT/ OT Pain control Pt has allergies to morphine sp Closed reduction, percutaneous pinning left hip femoral neck fracture with cannulated screws. 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 Awaiting insurance authorization for rehab placement.. Review of Systems Review of Systems: All systems reviewed & are unremarkable except as noted in HPI and below Exam Narrative: GENERAL: The patient is well developed, not in acute distress HEENT: Nonicteric sclerae, PERRLA, EOMI. Oropharynx clear. Moist mucous membranes. Conjunctivae appear well perfused. CHEST: Chest wall is nontender. HEART: Regular rate and rhythm without murmur, rubs, or gallops LUNGS: Clear to auscultation bilaterally. no respiratory distress ABDOMEN: Soft, positive bowel sounds, non-tender, no organomegaly. SKIN: No rash, no excessive bruising, petechiae, or purpura. NEUROLOGIC: Cranial nerves II-XII intact, alert and oriented x 3, no gross motor deficits EXTREMITIES: no edema, cyanosis or clubbing left hip with dressing which is clean dry and intact Objective Data Vital Signs Vital Signs: Vital Signs - 24 hr 04/28/23 20:00 04/28/23 21:21 04/28/23 23:14 Temperature 97.7 F Pulse Rate 79 85 Respiratory Rate 18 18 Blood Pressure 112/82 Pulse Oximetry 94 94 94 Oxygen Delivery Room Air Room Air 04/29/23 05:56 04/29/23 08:43 04/29/23 08:45 Temperature 97.2 F L Pulse Rate 76 92 Respiratory Rate 14 Blood Pressure 131/68 Pulse Oximetry 94 Oxygen Delivery Room Air Intake/Output Intake/Output: Intake & Output 04/26/23 04/27/23 04/28/23 04/29/23 23:59 23:59 23:59 23:59 Intake Total 300 730 740 220 Output Total 425 1650 75 Balance -125 -920 665 220 Meds/Results Medications: Active Medications Generic Name Dose Route Start Last Admin Trade Name Freq PRN Reason Stop Dose Admin Acetaminophen 650 mg 04/29/23 10:03 04/29/23 10:22 Acetaminophen 325 Mg Tablet PO 650 mg Q6H PRN Administration Mild Pain (1-3) or Fever Amlodipine Besylate 5 mg 04/27/23 09:00 04/29/23 08:44 Amlodipine Besylate 5 Mg Tablet BY MOUTH 5 mg QAM JOSE Administration Aspirin 81 mg 04/27/23 17:00 04/29/23 08:44 Aspirin 81 Mg Enteric Tablet PO 81 mg BID JOSE Administration Atenolol 50 mg 04/27/23 09:00 04/29/23 08:43 Atenolol 50 Mg Tablet PO 50 mg QAM JOSE Administration Fentanyl Citra
[2023-04-29 21:54] VITALS: BP 136/67; PULSE 78; RESP 18; TEMP 37.1; O2SAT 95
[2023-04-29] MEDS: LORazepam (*CRX) 1 MG TABLET PO (22:21)
[2023-04-30 03:22] VITALS: BP 154/78; PULSE 102; RESP 18; TEMP 36.1; O2SAT 98
[2023-04-30 06:00] VITALS: BP 129/56; PULSE 81; RESP 18; TEMP 36.4; O2SAT 99
[2023-04-30] MEDS: ACETAMINOPHEN 325 MG TABLET 650 MG PO ×2 (08:07→20:49)
[2023-04-30] MEDS: amLODIPine BESYLATE 5 MG TABLET BY MOUTH (08:09)
[2023-04-30] MEDS: PRAVASTATIN SODIUM 20 MG TABLET 40 MG PO (08:09)
[2023-04-30] MEDS: lisinopriL 20 MG TABLET 40 MG BY MOUTH (08:09)
[2023-04-30 08:10] VITALS: PULSE 84
[2023-04-30] MEDS: atenoloL 50 MG TABLET PO (08:10)
[2023-04-30] MEDS: ASPIRIN 81 MG ENTERIC TABLET PO ×2 (08:10→16:59)
[2023-04-30] MEDS: SENNA/DOCUSATE SODIUM TABLET 2 TAB PO ×2 (08:10→16:59)
[2023-04-30] MEDS: polyethylene glycoL 3350 17 GM POWD.PACK PO (08:11)
--- NOTE | 2023-04-30 13:43 | PM.IMPN ---
Progress Note: A&P Assessment and Plan (1) Closed hip fracture: Qualifiers: Encounter type: initial encounter Laterality: left Qualified Code(s): S72.002A - Fracture of unspecified part of neck of left femur, initial encounter for closed fracture Code(s): S72.009A - Fracture of unspecified part of neck of unspecified femur, initial encounter for closed fracture Status: Acute Assessment and Plan: Accidental fall on the L side XRay shows - Mildly impacted minimally medially displaced left subcapital femoral neck fracture? sp Closed reduction, percutaneous pinning left hip femoral neck fracture with cannulated screws on 04/26/23. DVT prophylaxis aspirin 81 b.i.d. for 2 weeks then 1 per day for orthopedics Awaiting SNF placement Follow-up with Orthopedics Fell out of bed 04/30/2023: X-rays negative for any new injury. This was mechanical (2) Falls: Qualifiers: Encounter type: initial encounter Qualified Code(s): W19.XXXA - Unspecified fall, initial encounter Code(s): W19.XXXA - Unspecified fall, initial encounter Status: Acute Assessment and Plan: PT/ OT Pain control Pt has allergies to morphine sp Closed reduction, percutaneous pinning left hip femoral neck fracture with cannulated screws. 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 X-rays negative. No fever chills Review of Systems Review of Systems: All systems reviewed & are unremarkable except as noted in HPI and below Exam Narrative: GENERAL: The patient is well developed, not in acute distress HEENT: Nonicteric sclerae, PERRLA, EOMI. Oropharynx clear. Moist mucous membranes. Conjunctivae appear well perfused. CHEST: Chest wall is nontender. HEART: Regular rate and rhythm without murmur, rubs, or gallops LUNGS: Clear to auscultation bilaterally. no respiratory distress ABDOMEN: Soft, positive bowel sounds, non-tender, no organomegaly. SKIN: No rash, no excessive bruising, petechiae, or purpura. NEUROLOGIC: Cranial nerves II-XII intact, alert and oriented x 3, no gross motor deficits EXTREMITIES: no edema, cyanosis or clubbing left hip with dressing which is clean dry and intact Objective Data Vital Signs Vital Signs: Vital Signs - 24 hr 04/29/23 14:00 04/29/23 21:54 04/29/23 20:00 Temperature 97 F L 98.7 F Pulse Rate 71 78 Respiratory Rate 16 18 Blood Pressure 117/58 L 136/67 Pulse Oximetry 94 95 Oxygen Delivery Room Air 04/30/23 03:22 04/30/23 06:00 04/30/23 08:10 Temperature 97 F L 97.6 F Pulse Rate 102 H 81 84 Respiratory Rate 18 18 Blood Pressure 154/78 H 129/56 L Pulse Oximetry 98 99 Oxygen Delivery 04/30/23 08:10 Temperature Pulse Rate Respiratory Rate Blood Pressure Pulse Oximetry Oxygen Delivery Room Air Intake/Output Intake/Output: Intake & Output 04/27/23 04/28/23 04/29/23 04/30/23 23:59 23:59 23:59 23:59 Intake Total 730 740 460 100 Output Total 1650 75 Balance -920 665 460 100 Meds/Results Medications: Active Medications Generic Name Dose Route Start Last Admin Trade Name Freq PRN Reason Stop Dose Admin Acetaminophen 650 mg 04/29/23 10:03 04/30/23 08:07 Acetaminophen 325 Mg Tablet PO 650 mg Q6H PRN Administration Mild Pain (1-3) or Fever Acetaminophen 1,000 mg 04/29/23 14:24 Acetaminophen 500 Mg Tablet PO QID PRN Pain, Moderate Amlodipine Besylate 5 mg 04/27
[2023-04-30 14:00] VITALS: BP 110/71; PULSE 77; RESP 16; TEMP 36.8; O2SAT 93
[2023-04-30] MEDS: LORazepam (*CRX) 1 MG TABLET PO (20:49)
[2023-04-30 22:00] VITALS: BP 128/60; PULSE 81; RESP 14; TEMP 35.9; O2SAT 97
[2023-05-01 06:00] VITALS: BP 123/71; PULSE 74; RESP 14; TEMP 35.8; O2SAT 94
[2023-05-01 07:51] LABS: Basophils Percent Auto 0.4 % (0.2-1.2); Eosinophils Absolute Auto 0.3 K/mm3 (0-0.3); Eosinophils Percent Auto 5.8 % (0-4.4); Hematocrit 36.4 % (37.0-47.0); Hemoglobin 11.9 g/dL (12.0-15.0); Immature Granulocyte Absolute 0.03 K/mm3 (0.00-0.031); Immature Granulocyte Percent A 0.6 % (0-0.5); Lymphocytes Absolute Auto 1.08 K/mm3 (0.9-3.2); Mean Corpuscular HGB Conc 32.7 g/dl (32-36); Mean Corpuscular Hemoglobin 32.6 pg (26-34); Mean Corpuscular Volume 99.7 fl (80-100); Mean Platelet Volume 8.3 fl (7.4-10.4); Monocytes Absolute Auto 0.5 K/mm3 (0.1-0.6); Monocytes Percent Auto 9.5 % (2.6-8.5); Neutrophils Absolute Auto 3.2 K/mm3 (1.3-6.7); Neutrophils Percent Auto 62.7 % (45.5-73.1); Platelet Count Result 203 k/mm3 (150-375); Red Blood Count 3.65 M/mm3 (4.2-5.4); Red Cell Distribution Width 12.3 % (11.5-14.5); White Blood Count 5.2 K/mm3 (4.5-10.0)
[2023-05-01 08:03] LABS: Alanine Aminotransferase 24 U/L (6-35); Albumin Level 3.3 g/dL (3.5-5.1); Alkaline Phosphatase 84 U/L (38-126); Anion Gap 7 mmol/L (8-16); Aspartate Amino Transferase 26 U/L (14-36); Bilirubin,Total 0.7 mg/dL (0.2-1.3); Blood Urea Nitrogen 15 mg/dL (7-17); Calcium 8.9 mg/dL (8.4-10.2); Carbon Dioxide 29 mmol/L (22-30); Chloride 101 mmol/L (98-107); Estimated CRCL calculation 49 ml/min; Estimated Glomerular Filt Rate > 60; Glucose 103 mg/dL (65-110); Magnesium 1.8 mg/dL (1.6-2.3); Sodium 137 mmol/L (137-145)
[2023-05-01 08:29] VITALS: PULSE 72
[2023-05-01] MEDS: ASPIRIN 81 MG ENTERIC TABLET PO ×2 (08:29→17:04)
[2023-05-01] MEDS: lisinopriL 20 MG TABLET 40 MG BY MOUTH (08:29)
[2023-05-01] MEDS: PRAVASTATIN SODIUM 20 MG TABLET 40 MG PO (08:29)
[2023-05-01] MEDS: SENNA/DOCUSATE SODIUM TABLET 2 TAB PO (08:29)
[2023-05-01] MEDS: atenoloL 50 MG TABLET PO (08:29)
[2023-05-01] MEDS: amLODIPine BESYLATE 5 MG TABLET BY MOUTH (08:29)
[2023-05-01] MEDS: ACETAMINOPHEN 325 MG TABLET 650 MG PO ×2 (08:32→22:28)
--- NOTE | 2023-05-01 12:32 | PM.PNORT ---
Progress Note: A&P Assessment and Plan (1) Closed hip fracture: Qualifiers: Encounter type: initial encounter Laterality: left Qualified Code(s): S72.002A - Fracture of unspecified part of neck of left femur, initial encounter for closed fracture Code(s): S72.009A - Fracture of unspecified part of neck of unspecified femur, initial encounter for closed fracture Status: Acute Assessment and Plan: POD #5 Closed reduction, percutaneous pinning left hip femoral neck fracture with cannulated screws. Patient had a fall Monday evening. Radiographs reviewed showing no new or worsening fracture. Lag screws in place. Her confusion is improving. She is eager to continue therapy. I recommend she go to rehab before returning home. Daughter would like her to go to her house before returning home. I agree. Continue PT/OT. Partial weight bearing with a walker. Ortho instructions: (DOS: 04/26/23) D/C to SNF/rehab Follow up in office in 4 weeks with xrays. Wound Care: Remove Mepilex dressing at 7 days post op. Remove steristrips at 14 days post op. May shower. No soaking. PT: Partial weight bearing with a walker. DVT prophylaxis: ASA 81 mg BID for 2 weeks then resume one per day dose. Pain medication: Tylenol. (2) At risk for falls: Code(s): Z91.81 - History of falling Status: Acute Subjective Subjective Date/Time Seen: 05/01/23 12:32 Interval history: Patient resting comfortably in bed. She fell out of bed Monday evening. She did not have any increased pain in her hip after the fall. She states her confusion is getting much better now. Her and her daughter agree that she has been able to do more with therapy. She is eager to rehab her hip and return home. Review of Systems Review of Systems: All systems reviewed & are unremarkable except as noted in HPI and below Exam Narrative: 87 y/o normal weight female. Resting comfortably in bed. Sleeping. No acute distress. Dressing dry and intact without drainage. No erythema or ecchymosis. No rashes or lesions noted. Warm, normal appearing skin. No deformity. No distal swelling. Distal pulses palpable. Normal capillary refill. Objective Data Vital Signs Vital Signs: Vital Signs - 24 hr 04/30/23 14:00 04/30/23 22:00 05/01/23 06:00 Temperature 98.2 F 96.7 F L 96.5 F L Pulse Rate 77 81 74 Respiratory Rate 16 14 14 Blood Pressure 110/71 128/60 123/71 Pulse Oximetry 93 97 94 Oxygen Delivery 05/01/23 08:29 05/01/23 08:30 Temperature Pulse Rate 72 Respiratory Rate Blood Pressure Pulse Oximetry Oxygen Delivery Room Air Intake/Output Intake/Output: Intake & Output 04/28/23 04/29/23 04/30/23 05/01/23 23:59 23:59 23:59 23:59 Intake Total 740 460 720 268 Output Total 75 Balance 665 460 720 268 Meds/Results Medications: Active Medications Generic Name Dose Route Start Last Admin Trade Name Freq PRN Reason Stop Dose Admin Acetaminophen 650 mg 04/29/23 10:03 05/01/23 08:32 Acetaminophen 325 Mg Tablet PO 650 mg Q6H PRN Administration Mild Pain (1-3) or Fever Amlodipine Besylate 5 mg 04/27/23 09:00 05/01/23 08:29 Amlodipine Besylate 5 Mg Tablet BY MOUTH 5 mg QAM JOSE Administration Aspirin 81 mg 04/27/23 17:00 05/01/23 08:29 Aspirin 81 Mg Enteric Tablet PO 81 mg BID JOSE Administration Atenolol 50 mg 04/27/23 09:00 05/01/23 08:29 Atenolol 50 Mg Tablet PO 50 mg QAM JOSE Administration Fentanyl Citrate 25 mcg 04/26/23 16:26 Fentanyl Citrate Inj (*Crx) 100 Mcg/2 Ml Vial IV PUSH Q2M PRN Pain Lisinopril 40 mg 04/27/23 09:00 05/01/23 08:29 Lisinopril 20 Mg Tablet BY MOUTH 40 mg QAM JOSE Administration Lorazepam 0.5 mg 04/26/23 11:05 04/27/23 23:13 Lorazepam Inj (*Crx) 2 Mg/Ml Vial IV PUSH 0.5 mg Q8H PRN Administration Anxiety Lorazepam 1 mg 04/29/23 21:00 04/30/23 20:49 Lorazepam (*Crx) 1 Mg
[2023-05-01 14:00] VITALS: BP 117/59; PULSE 66; RESP 18; TEMP 36.6; O2SAT 98
--- NOTE | 2023-05-01 16:25 | PM.IMPN ---
Progress Note: A&P Assessment and Plan (1) Closed hip fracture: Qualifiers: Encounter type: initial encounter Laterality: left Qualified Code(s): S72.002A - Fracture of unspecified part of neck of left femur, initial encounter for closed fracture Code(s): S72.009A - Fracture of unspecified part of neck of unspecified femur, initial encounter for closed fracture Status: Acute Assessment and Plan: Accidental fall on the L side XRay shows - Mildly impacted minimally medially displaced left subcapital femoral neck fracture? sp Closed reduction, percutaneous pinning left hip femoral neck fracture with cannulated screws on 04/26/23. DVT prophylaxis aspirin 81 b.i.d. for 2 weeks then 1 per day for orthopedics Awaiting SNF placement Follow-up with Orthopedics Fell out of bed 04/30/2023: X-rays negative for any new injury. This was mechanical (2) Falls: Qualifiers: Encounter type: initial encounter Qualified Code(s): W19.XXXA - Unspecified fall, initial encounter Code(s): W19.XXXA - Unspecified fall, initial encounter Status: Acute Assessment and Plan: PT/ OT Pain control Pt has allergies to morphine sp Closed reduction, percutaneous pinning left hip femoral neck fracture with cannulated screws. 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 rehab placement heel caser working on this (3) Essential (primary) hypertension: Code(s): I10 - Essential (primary) hypertension Status: Acute Assessment and Plan: BP stable on lisinopril and atenolol and amlodipine Plan DVT prop ASA Severe multilevel degenerative disc disease of the lumbar spine Grade 1 anterolisthesis at L4-L5 and L5-S1 due to prominent degenerative change at the upper physeal joints Subjective Date/time seen: 05/01/23 16:25 Interval history: No overnight events. Working with therapy this a.m.. No shortness with chest pain. Awaiting insurance authorization for rehabilitation Review of Systems Review of Systems: All systems reviewed & are unremarkable except as noted in HPI and below Exam Narrative: GENERAL: The patient is well developed, not in acute distress HEENT: Nonicteric sclerae, PERRLA, EOMI. Oropharynx clear. Moist mucous membranes. Conjunctivae appear well perfused. CHEST: Chest wall is nontender. HEART: Regular rate and rhythm without murmur, rubs, or gallops LUNGS: Clear to auscultation bilaterally. no respiratory distress ABDOMEN: Soft, positive bowel sounds, non-tender, no organomegaly. SKIN: No rash, no excessive bruising, petechiae, or purpura. NEUROLOGIC: Cranial nerves II-XII intact, alert and oriented x 3, no gross motor deficits EXTREMITIES: no edema, cyanosis or clubbing left hip with dressing which is clean dry and intact Objective Data Vital Signs Vital Signs: Vital Signs - 24 hr 04/30/23 22:00 05/01/23 06:00 05/01/23 08:29 Temperature 96.7 F L 96.5 F L Pulse Rate 81 74 72 Respiratory Rate 14 14 Blood Pressure 128/60 123/71 Pulse Oximetry 97 94 Oxygen Delivery 05/01/23 08:30 Temperature Pulse Rate Respiratory Rate Blood Pressure Pulse Oximetry Oxygen Delivery Room Air Intake/Output Intake/Output: Intake & Output 04/28/23 04/29/23 04/30/23 05/01/23 23:59 23:59 23:59 23:59 Intake Total 740 460 720 508 Output Total 75 Balance 665 460 720 508 Meds/Results Medications: Active Medications Generic Name Dose Route Start Last Admin Trade Name Freq PRN Reason Stop Dose Admin Acetaminophen 650 mg 04/29/23 10:03 05/01/23 08:32 Acetaminophen 325 Mg Tablet PO 650 mg Q6H PRN Administration Mild Pain (1-3) or Fever Amlodipine Besylate 5 mg 04/27/23 09:00 05/01/23 08:29 Amlodipine Besylate 5 Mg Tablet BY MOUTH 5 mg QAM JOSE Administration Aspirin 81 mg 04/27/23 17:00 05/01/23 08:29 Aspirin 81 Mg Enteric Tablet PO 81 mg BID JOSE Administration Atenolol 50 mg 04/27/23 09:00 05/01/23 08:29 Ate
[2023-05-01] MEDS: LORazepam (*CRX) 1 MG TABLET PO (22:28)
[2023-05-01 22:40] VITALS: BP 119/61; PULSE 65; RESP 16; TEMP 36.2; O2SAT 97
[2023-05-02 06:00] VITALS: BP 145/70; PULSE 65; RESP 18; TEMP 35.8; O2SAT 98
[2023-05-02] MEDS: PRAVASTATIN SODIUM 20 MG TABLET 40 MG PO (09:29)
[2023-05-02] MEDS: amLODIPine BESYLATE 5 MG TABLET BY MOUTH (09:29)
[2023-05-02] MEDS: lisinopriL 20 MG TABLET 40 MG BY MOUTH (09:29)
[2023-05-02] MEDS: ASPIRIN 81 MG ENTERIC TABLET PO ×2 (09:29→16:45)
[2023-05-02] MEDS: atenoloL 50 MG TABLET PO (09:29)
--- NOTE | 2023-05-02 13:13 | PCNWS ---
Weekly nutritional screen. Patient is tolerating current regular diet with adequate intake at 75-100% of meals. No weight loss reported. No nutritional needs at this time.
[2023-05-02 14:00] VITALS: BP 146/54; PULSE 66; RESP 18; TEMP 36.4; O2SAT 100
--- NOTE | 2023-05-02 14:35 | PM.IMPN ---
Progress Note: A&P Assessment and Plan (1) Closed hip fracture: Qualifiers: Encounter type: initial encounter Laterality: left Qualified Code(s): S72.002A - Fracture of unspecified part of neck of left femur, initial encounter for closed fracture Code(s): S72.009A - Fracture of unspecified part of neck of unspecified femur, initial encounter for closed fracture Status: Acute Assessment and Plan: Accidental fall on the L side XRay shows - Mildly impacted minimally medially displaced left subcapital femoral neck fracture? sp Closed reduction, percutaneous pinning left hip femoral neck fracture with cannulated screws on 04/26/23. DVT prophylaxis aspirin 81 b.i.d. for 2 weeks then 1 per day for orthopedics Awaiting SNF placement Follow-up with Orthopedics Fell out of bed 04/30/2023: X-rays negative for any new injury. This was mechanical (2) Falls: Qualifiers: Encounter type: initial encounter Qualified Code(s): W19.XXXA - Unspecified fall, initial encounter Code(s): W19.XXXA - Unspecified fall, initial encounter Status: Acute Assessment and Plan: PT/ OT Pain control Pt has allergies to morphine sp Closed reduction, percutaneous pinning left hip femoral neck fracture with cannulated screws. 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 Awaiting insurance authorization Peer to peer requested. Which is scheduled to happen today. Review of Systems Review of Systems: All systems reviewed & are unremarkable except as noted in HPI and below Exam Narrative: GENERAL: The patient is well developed, not in acute distress HEENT: Nonicteric sclerae, PERRLA, EOMI. Oropharynx clear. Moist mucous membranes. Conjunctivae appear well perfused. CHEST: Chest wall is nontender. HEART: Regular rate and rhythm without murmur, rubs, or gallops LUNGS: Clear to auscultation bilaterally. no respiratory distress ABDOMEN: Soft, positive bowel sounds, non-tender, no organomegaly. SKIN: No rash, no excessive bruising, petechiae, or purpura. NEUROLOGIC: Cranial nerves II-XII intact, alert and oriented x 3, no gross motor deficits EXTREMITIES: no edema, cyanosis or clubbing left hip with dressing which is clean dry and intact Objective Data Vital Signs Vital Signs: Vital Signs - 24 hr 05/01/23 22:40 05/02/23 06:00 05/02/23 08:35 Temperature 97.1 F L 96.5 F L Pulse Rate 65 65 Respiratory Rate 16 18 Blood Pressure 119/61 145/70 H Pulse Oximetry 97 98 Oxygen Delivery Room Air Intake/Output Intake/Output: Intake & Output 04/29/23 04/30/23 05/01/23 05/02/23 23:59 23:59 23:59 23:59 Intake Total 460 720 508 640 Balance 460 720 508 640 Meds/Results Medications: Active Medications Generic Name Dose Route Start Last Admin Trade Name Freq PRN Reason Stop Dose Admin Acetaminophen 650 mg 04/29/23 10:03 05/01/23 22:28 Acetaminophen 325 Mg Tablet PO 650 mg Q6H PRN Administration Mild Pain (1-3) or Fever Amlodipine Besylate 5 mg 04/27/23 09:00 05/02/23 09:29 Amlodipine Besylate 5 Mg Tablet BY MOUTH 5 mg QAM JOSE Administration Aspirin 81 mg 04/27/23 17:00 05/02/23 09:29 Aspirin 81 Mg Enteric Tablet PO 81 mg BID JOSE Administration Atenolol 50 mg 04/27/23 09:00 05/02/23 09:29 Atenolol 50 Mg Tablet PO 50 mg QAM JOSE Administration Fentanyl Citrate 25 mcg 04/26/23 16:26 Geno
--- NOTE | 2023-05-02 16:07 | PM.DS ---
DS: Admitting Diagnosis Discharge Date 05/02/2023 Admitting Diagnosis Fall DS: Discharge Diagnosis Discharge Diagnosis (1) Closed hip fracture: Qualifiers: Encounter type: initial encounter Laterality: left Qualified Code(s): S72.002A - Fracture of unspecified part of neck of left femur, initial encounter for closed fracture Code(s): S72.009A - Fracture of unspecified part of neck of unspecified femur, initial encounter for closed fracture Status: Acute (2) Falls: Qualifiers: Encounter type: initial encounter Qualified Code(s): W19.XXXA - Unspecified fall, initial encounter Code(s): W19.XXXA - Unspecified fall, initial encounter Status: Acute (3) Essential (primary) hypertension: Code(s): I10 - Essential (primary) hypertension Status: Acute DS: Summary Hospital Course Hospital Course: Accidental fall on left side Left subcapital femoral neck fracture status post closed reduction percutaneous pinning with cannulated screws on 04/26/2023 Hypertension controlled on home medication DVT prophylaxis aspirin twice daily for 2 weeks then once daily 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 to peer was requested was denied. Patient will benefit from further rehabilitation and was discharged to rehab facility Time Spent with Patient Time attestation: Total time spent providing and/or coordinating discharge services: 45 minutes Exam Narrative: GENERAL: The patient is well developed, not in acute distress HEENT: Nonicteric sclerae, PERRLA, EOMI. Oropharynx clear. Moist mucous membranes. Conjunctivae appear well perfused. CHEST: Chest wall is nontender. HEART: Regular rate and rhythm without murmur, rubs, or gallops LUNGS: Clear to auscultation bilaterally. no respiratory distress ABDOMEN: Soft, positive bowel sounds, non-tender, no organomegaly. SKIN: No rash, no excessive bruising, petechiae, or purpura. NEUROLOGIC: Cranial nerves II-XII intact, alert and oriented x 3, no gross motor deficits EXTREMITIES: no edema, cyanosis or clubbing left hip with dressing which is clean dry and intact DS: Data Imaging Radiologist's impression: ITS Impressions Head CT 04/25/23 16:44 IMPRESSION: 1. Moderate nonspecific cerebral white matter disease, which likely represents chronic small vessel ischemic disease. 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 Hip X-Ray 04/25/23 17:23 IMPRESSION: Mildly impacted minimally medially displaced left subcapital femoral neck fracture Intraoperative X-Ray 04/26/23 17:59 IMPRESSION: Fluoroscopic documentation of left hip pinning. Please refer to the operative note for complete procedural details . Hip X-Ray 04/30/23 09:03 IMPRESSION: 1. Subcapital fracture of left femoral neck status post screw fixation. 2. Mild left hip osteoarthritis. Discharge Plan Discharge Attending
== END 2023-05-02 17:00 | DRG 481 ==
LOC: ANHED 18:41 → ANH3MEDSUR 20:26
PROVIDERS: Nurse Practitioner Family; Orthopaedic Surgery; Admitting Provider General Practice; Emergency Provider Emergency Medicine; PCP Family Medicine; Visit Provider Internal Medicine
PROC: 0QS734Z Reposition Left Upper Femur with Internal Fixation Device, Percutaneous Approach (ICD-10-PCS; principal; 2023-04-26 15:30)
DX: F05 Delirium due to known physiological condition; S72.012A Unspecified intracapsular fracture of left femur, initial encounter for closed fracture; W19.XXXA Unspecified fall, initial encounter; I10 Essential (primary) hypertension; F41.9 Anxiety disorder, unspecified; M47.816 Spondylosis without myelopathy or radiculopathy, lumbar region; Z79.82 Long term (current) use of aspirin; Z28.21 Immunization not carried out because of patient refusal
CPT/HCPCS: 36415; 70450; 71045; 71110; 72192; 73502; 73562; 80053; 83735; 85025; 86850; 86900; 86901; 96374; 96375; 97110; 97116; 97161; 97166; 97530; 97535; 99199; 99285; A9270; C1713; J0690; J1885; J2060; J2270; J2405; J3010; J7030; J7120

== ENCOUNTER 2023-05-25 13:27 | Outpatient (CLI) | payer MEDICARE, SELFPAY ==
--- NOTE | ~2023-05-25 | XR_ITS ---
EXAMINATION: XR hip LT 2V w AP pelvis INDICATION: One-month postop left hip surgery TECHNIQUE: Three views of the left hip are obtained. COMPARISON: 04/30/2023 FINDINGS: There is a healing subcapital fracture of the left femoral neck stabilized by three lag scr ews. Alignment is unchanged. No additional fracture is identified. There is mild osteoarthritis of th e hips. IMPRESSION: 1. Healing, internally stabilized subcapital fracture of the left femoral neck. Reviewed, dictated and finalized at location [facility]
== END 2023-05-25 13:28 | disposition home or self-care (01) ==
PROVIDERS: PCP Family Medicine; Visit Provider Orthopaedic Surgery
DX: S72.012D Unspecified intracapsular fracture of left femur, subsequent encounter for closed fracture with routine healing (principal)
CPT/HCPCS: 73502

== ENCOUNTER 2023-10-05 11:38 | Outpatient (CLI) | payer MEDICARE, SELFPAY ==
--- NOTE | ~2023-10-05 | XR_ITS ---
Left Shoulder Technique: AP and scapular Y views were obtained. Clinical History: Pain COMPARISON: 03/03/2022 Findings: No fracture or dislocation is seen. There is severe degenerative change of the glenohumeral joint, joint space narrowing and prominent inferomedial humeral head ossify. There is mild to modera te AC joint degenerative change.. Soft tissues are unremarkable. Stable prominence of the left hilum, possibly calcified lymph node. Impression: Severe glenohumeral joint degenerative change, and mild to moderate AC joint degenerative change, sim ilar to prior exam. Stable prominence of the left hilum, possibly lymphadenopathy, possibly calcified. Reviewed, dictated and finalized at location . Impression: Severe glenohumeral joint degenerative change, and mild to moderate AC joint de generative change, similar to prior exam. Stable prominence of the left hilum, possibly lymphadenopathy, possibly calcifi ed.
== END 2023-10-05 11:39 | disposition home or self-care (01) ==
PROVIDERS: PCP Family Medicine; Visit Provider Orthopaedic Surgery
DX: M75.42 Impingement syndrome of left shoulder (principal)
CPT/HCPCS: 73030

== ENCOUNTER 2024-04-12 09:54 | Emergency (ER) | payer MEDICARE, SELFPAY ==
[2024-04-12] VITALS (8 sets, daily range): BP systolic 113–137; BP diastolic 48–68; PULSE 61–83; RESP 15–20; TEMP 36.2–36.5; O2SAT 97–100
--- NOTE | ~2024-04-12 | XR_ITS ---
EXAMINATION: XR chest 1V DATE: 04/12/2024 14:47 INDICATION: Dizziness. TECHNIQUE: A single frontal view of the chest was obtained. 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 No pleural effusion or pneumothorax. The heart size is normal. There is a modera te-sized hiatal hernia. Surgical clips in the right upper quadrant are likely from cholecystectomy. IMPRESSION: 1. Moderate-sized hiatal hernia. Reviewed, dictated and finalized at location B.
--- NOTE | ~2024-04-12 | CT_ITS ---
EXAMINATION: CT brain wo con DATE: 04/12/2024 14:38 INDICATION: Dizziness. Fall. TECHNIQUE: Computed tomography (CT) of the head was performed without intravenous contrast. The mA wa s adjusted according to patient size. Iterative reconstruction technique was employed. The dose-lengt h product was 529.67 mGy-cm. COMPARISON: Head CT 04/25/2023 FINDINGS: There is no intracranial hemorrhage, acute infarction, or abnormal intracranial mass lesion . There are scattered areas of low attenuation in the cerebral white matter. The ventricles are ang l in size. There are likely changes of right ocular lens replacement surgery. There is mild mucosal t hickening in the paranasal sinuses. The mastoid air cells are normal. IMPRESSION: 1. Stable moderate nonspecific cerebral white matter disease, which likely represents chronic small v essel ischemic disease. Reviewed, dictated and finalized at location B. IMPRESSION: 1. Stable moderate nonspecific cerebral white matter disease, which likely repr esents chronic small vessel ischemic disease.
--- NOTE | ~2024-04-12 | CT_ITS ---
EXAMINATION: CT cervical spine wo con DATE: 04/12/2024 14:38 INDICATION: Fall with head injury TECHNIQUE: Computed tomography (CT) of the cervical spine was performed without intravenous contrast. Automated exposure control and iterative reconstruction technique were employed. The dose-length pro duct was 119.80 mGy-cm. COMPARISON: None FINDINGS: 1-2 mm anterolisthesis C5 on C6 and C7 on T1. Vertebral body heights are normal. No acute fracture. S evere disc height loss at C6-C7 with associated degenerative endplate changes and severe bilateral un covertebral osteoarthritis. Moderate disc height loss with bilateral moderate to severe uncovertebral osteoarthritis at C4-C5 and C5-C6. Mild disc height loss at C6-C7. There is severe multilevel bilate ral cervical facet osteoarthritis and posterior fusion across the left C5-C6 facet joints. Small post erior endplate ossifies contributing to mild central canal stenosis at C5-C6 and C6-C7. There is also multilevel mild neural foraminal stenosis at multiple levels throughout the left and right sides of the cervical spine. Atherosclerotic calcific is at the bilateral carotid bulbs. Cervical soft tissues are otherwise unremarkable. There are few small bilateral calcified nodules at the bilateral apices of lungs. IMPRESSION: 1. 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 No acute osseous abnormality. Reviewed, dictated and finalized at location A.
--- NOTE | 2024-04-12 11:49 | ECG_ITS ---
Test Date: 2024-04-12 13:06:40 Measurements Intervals [place] Rate: 61 P: 31 GA: 153 QRS: -9 QRSD: 73 T: 20 QT: 394 QTc: 399 Interpretive Statements SINUS RHYTHM WITH OCCASIONAL VENTRICULAR PREMATURE COMPLEXES DELAYED PRECORDIAL R/S TRANSITION BASELINE ARTIFACT- I, II, III, AVR, AVL BORDERLINE ECG No previous ECG available for comparison Electronically Signed On 04-12-2024 13:37:26 CDT by Geo Escoto D.O.
--- NOTE | 2024-04-12 14:13 | ED.DIZZY ---
HPI - Dizziness General Chief Complaint: Dizziness Stated Complaint: fall and dizziness Time Seen by Provider: 04/12/24 14:07 Source: patient and family Mode of arrival: ambulatory Limitations: no limitations History of Present Illness HPI Narrative: 88 YEARS OLD WHITE FEMALE CAME FROM HOME BY PRIVATE CAR WITH HER DAUGHTER COMPLAINING OF A FALL AND HITTING HER HEAD ON THE GROUND. PATIENT REPORT WAS TRYING TO OPEN THE DOOR, HER HAND SLIPPED ON THE DOOR KNOB AND FELL TO THE GROUND. NO LOSS OF CONSCIOUSNESS, NO NO OTHER INJURIES. HER DAUGHTER REPORTED THAT PATIENT WAS TRYING TO SIT UP AND GOT DIZZY THAT IS WHY SHE BROUGHT IN THE EMERGENCY ROOM. CURRENTLY PATIENT IS ASYMPTOMATIC, SHE IS AWAKE, ALERT ORIENTED X4. SHE DENIES ANY FEVER, CHILLS, NAUSEA, VOMITING, ABDOMINAL PAIN, CHEST PAIN, SHORTNESS OF BREATH, HEADACHE. Related Data Home Medications Medication Instructions Recorded Confirmed acetaminophen 325 mg tablet 650 mg PO TID PRN Pain 01/02/24 01/22/24 aspirin 81 mg tablet,delayed 81 mg PO DAILY 01/02/24 01/22/24 release lisinopril 40 mg tablet 40 mg PO DAILY 01/02/24 01/22/24 vit C 250 mg-vit E 90 mg-zinc 40 2 tablet PO DAILY 01/02/24 01/22/24 mg-copper 1 [id number] capsule (PreserVision AREDS-2) vitamin A-vit C-vit E-zinc-Cu 2 tablet PO DAILY 01/02/24 01/22/24 tablet vit C 250 mg-vit E 200 unit-zinc 1 cap PO .QD 01/22/24 01/22/24 ox 12.5 lb-isjvpe-udsiqw-zeax capsule (ICaps AREDS2) Allergies Allergy/AdvReac Type Severity Reaction Status Date / Time shrimp Allergy Nausea and Verified 02/26/24 10:33 Vomiting morphine AdvReac Nausea and Verified 02/26/24 10:33 Vomiting Review of Systems Review of Systems: All systems reviewed & are unremarkable except as noted in HPI and below PMFSH Past Medical History Medical History At risk for falls Closed hip fracture Depression Elevated fasting glucose Impingement syndrome, shoulder, left Leg weakness, bilateral UTI (urinary tract infection) Surgical History Surgical History History of hip surgery (~04/26/23) Closed Reduction Percutaneous Pinning Lt Hip Femoral Neck Fracture Family History Family History Other Acute myocardial infarction Family history of coronary artery disease Social History Social History Smoking status: Never smoker Alcohol intake: never Substance use: never Substance use type: does not use Do You Feel Safe in your Home?: Yes Lack of Transportation: No Lack of Food: Never True Current Housing: I Have Housing Concerned About Future Housing: No Difficulty Paying Gas/Electric Bills: No Difficulty Paying for Meds: No Currently Unemployed: No Education: Master's Degree or Higher Difficulty w/ Childcare or Family Care: No Spiritual care concerns: No Exam Narrative: GENERAL APPEARANCE: WELL-DEVELOPED, WELL-NOURISHED SKIN: NORMAL COLOR HEAD: NORMOCEPHALIC, NONTRAUMATIC EYES: CLEAR CONJUNCTIVA ENT: OROPHARYNX NORMAL, EARS NORMAL, NOSE NORMAL NECK: SUPPLE, NONTENDER CHEST AND RESPIRATORY: AIRWAY PATENT, NO RESPIRATORY DISTRESS, NO ACCESSORY MUSCLE USE HEART: REGULAR RATE/RHYTHM ABDOMEN: SOFT, NONTENDER, NO ORGANOMEGALY, QUIET BOWEL SOUNDS VASCULAR: NORMAL PERIPHERAL PULSES, NORMAL CAPILLARY REFILL. 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, NO GROSS MOTOR DEFICIT Course Vital Signs Vital signs: Vital Signs Temperature 36.5 C 04/12/24 10:26 Pulse Rate 70 04/12/24 10:26 Respiratory Rate 15 04/12/24 10:26 Blood Pressure 120/66 04/12/24 10:26 Pulse Oximetry 100 04/12/24 10:26 Oxygen Delivery Room Air 04/12/24 10:26 Temperature 36.2 C L 04/12/24 16:43 Pulse Rate 63 04/12/24 16:43 Respiratory Rate 20 04/12/24 16:43 Blood Pressure 113/68 04/12/24 16:43 Pulse Oximetry 97 04/12/24 16:43 Oxygen Delivery Room Air 04/12/24 12:16 MDM - Dizziness MDM Narrative Medical decision making narrative: PATIENT CAME FROM HOME BECAUSE OF A GROUND LEVEL FALLS VITAL SIGNS ARE STABLE PHYSICAL EXAMINATION SHOWED NO ACUTE ABNORMALITIES DIFFERENTIAL DIAGNOSIS INCLUDE GENERAL WEAKNESS, URINARY TRACT INFECTION, ELECTROLYTE ABNORMALITY, DEHYDRATION BLOOD WORKUP TODAY SHOWED NO ACUTE ABNORMALITIES, URINALYSIS SHOWED NO EVIDENCE OF INFECTION, CT HEAD AND CERVICAL SPINE WITHOUT CONTRAST SHOWED NO ACUTE ABNORMALITIES, CHEST X-RAY SHOWED NO ACUTE ABNORMALITIES. PATIENT WAS ABLE TO GET UP AND WALK IN THE ED FOR FEW STEPS WITHOUT ANY COMPLAIN OR DIZZINESS OR LIGHTHEADEDNESS. THE PT WAS DISCHARGED TO HOME.THE PT,S CONDITION UPON DISCHARGE WAS FAIR,EDUCATION WAS PROVIDED TO THE PT IN REFERENCE TO THE FINAL IMPRESSION,DISCHARGE STUDY RESULTS,TREATMENT,PROGNOSIS AND NEED FOR FOLLOW UP . Differential Diagnosis Differential diagnosis: Likely other ( ABOVE) Medical Records Attestation: I reviewed the patient's medical records. Lab Data Attestation: I reviewed the patient's lab results. 04/12/24 15:35 04/12/24 15:35 Labs: Lab Results 04/12/24 04/12/24 Range/Units 15:35 15:56 WBC 5.9 (4.5-10.0) K/mm3 RBC 3.80 L (4.2-5.4) M/mm3 Hgb 12.0 (12.0-15.0) g/dL Hct 36.7 L (37.0-47.0) % MCV 96.6 (80-100) fl MCH 31.6 (26-34) pg MCHC 32.7 (32-36) g/dl RDW 13.2 (11.5-14.5) % Plt Count 187 D (150-375) k/mm3 MPV 8.2 (7.4-10.4) fl Immature Gran % (Auto) 0.3 (0-0.5) % Neut % (Auto) 64.1 (45.5-73.1) % Lymph % (Auto) 22.5 (18.3-44.2) % Coffee % (Auto) 9.2 H (2.6-8.5) % Eos % (Auto) 3.2 (0-4.4) % Baso % (Auto) 0.7 (0.2-1.2) % Lymph # (Auto) 1.32 (0.9-3.2) K/mm3 Coffee # (Auto) 0.5 (0.1-0.6) K/mm3 Eos # (Auto) 0.2 (0-0.3) K/mm3 Baso # (Auto) 0.0 (0.0-0.1) K/mm3 Abs Immat Gran (auto) 0.02 (0.00-0.031) K/mm3 Absolute Neuts (auto) 3.8 (1.3-6.7) K/mm3 Absolute Nucleated RBC 0.000 (0.0-0.012) K/mm3 Nucleated RBC % 0.0 (0.0-0.2) % PT 13.7 (11.1-14.7) Seconds INR 1.0 APTT 30.7 (22.3-36.8) Seconds Sodium 139 (137-145) mmol/L Potassium 4.4 (3.4-5.0) mmol/L Chloride 104 (98-107) mmol/L Carbon Dioxide 26 (22-30) mmol/L Anion Gap 9 (4-12) mmol/L BUN 17 (7-17) mg/dL Creatinine 0.50 L (0.7-1.0) mg/dL Estim Creat Clear Calc 48 ml/min Estimated GFR > 60 (59 - ) Glucose 104 (65-110) mg/dL Calcium 9.4 (8.4-10.2) mg/dL Total Bilirubin 0.6 (0.2-1.3) mg/dL AST 26 (14-36) U/L ALT 17 (6-35) U/L Alkaline Phosphatase 145 H (38-126) U/L Total Creatine Kinase 32 (30-135) U/L Troponin I < 0.012 (0.000-0.034) ng/mL Total Protein 8.0 (6.3-8.2) g/dL Albumin 4.1 (3.5-5.1) g/dL Urine Color Yellow (Yellow) Urine Appearance Clear (Clear) Urine pH 7.0 (5.0-9.0) Ur Specific [place] 1.016 (1.001-1.035) Urine Protein Negative (Negative) mg/dL Urine Glucose (UA) Negative (Negative) mg/dL Urine Ketones Negative (Negative) mg/dL Ur Blood (Man) Negative (Negative) Urine Nitrate Negative (Negative) Urine Bilirubin Negative (Negative) Urine Urobilinogen 1.0 (<2.0) mg/dL Add Ur Microanalysis Reviewed Leukocyte Esterase Rfl 1+ H (Negative) MADDISON/UL Urine RBC 0-2 (0-2) /hpf Urine WBC 0-5 (0-3) /hpf Ur Squamous Epith Cells None seen (Few) /hpf Urine Bacteria None seen /hpf Urine Casts 0-2 Imaging Data Radiologist's impression: Impressions Head CT 04/12/24 14:40 IMPRESSION: 1. Stable moderate nonspecific cerebral white matter disease, which likely represents chronic small vessel ischemic disease. Cervical Spine CT 04/12/24 14:42 IMPRESSION: 1. 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 No acute osseous abnormality. Chest X-Ray 04/12/24 14:48 IMPRESSION: 1. Moderate-sized hiatal hernia. ECG Data EKG #1: Attestation: I personally reviewed and interpreted this ECG as follows: ECG completion date: 04/12/24 Interpretation: NORMAL SINUS RHYTHM AT 61 BEATS PER MINUTE WITH OCCASIONAL PVCS, BORDERLINE EKG, NO PREVIOUS EKG AVAILABLE FOR COMPARISON Critical Care Time Critical Care Time Critical Care Time: No Discharge Plan Discharge Clinical Impression: Fall, CHI (closed head injury) Patient Disposition: Home, Self-Care Condition: Stable Instructions: Head Injury (ED), Fall Prevention (ED) Additional Instructions: RETURN IF SYMPTOMS ARE WORSENING , CALL YOUR FAMILY PHYSICIAN FOR APPOINTMENT, TAKE TYLENOL NEEDED FOR ACHES AND PAIN, CONTINUE HOME MEDICATIONS. Prescriptions: No Action amlodipine 10 mg tablet 10 mg PO DAILY Qty: 90 3RF ICaps AREDS2 250 mg-200 unit -12.5 mg-1 mg capsule 1 cap PO .QD polyethylene glycol 3350 [Miralax] 17 gram Powder In Packet 17 g PO QAM PRN (Reason: constipation) Qty: 30 0RF atenolol 50 mg tablet See Rx Instructions .ROUTE .COMPLEX Qty: 90 0RF Dose Instruction: TAKE 1 TABLET BY MOUTH EVERY MORNING Rx Instructions: TAKE 1 TABLET BY MOUTH EVERY MORNING duloxetine 20 mg capsule,delayed release(DR/EC) 20 mg PO BID Qty: 60 3RF lorazepam 0.5 mg tablet 1 mg PO QHS Qty: 90 0RF Rx Instructions: QHS pravastatin 40 mg tablet 40 mg PO QHS Qty: 30 3RF acetaminophen 325 mg Tablet 650 mg PO TID PRN (Reason: Pain) PreserVision AREDS-2 250-90-40-1 mg Capsule 2 tablet PO DAILY Rx Instructions: Take 2 capsules by mouth daily vitamin A-vit C-vit E-zinc-Cu Tablet 2 tablet PO DAILY aspirin 81 mg tablet,delayed release (DR/EC) 81 mg PO DAILY Rx Instructions: take aspirin bid x 2 weeks then once daily lisinopril 40 mg tablet 40 mg PO DAILY Rx Instructions: TAKE 1 TABLET BY MOUTH EVERY MORNING Follow-up/Referrals: Kojo Norwood MD [Primary Care Provider] -
[2024-04-12 15:44] LABS: Basophils Percent Auto 0.7 % (0.2-1.2); Eosinophils Absolute Auto 0.2 K/mm3 (0-0.3); Eosinophils Percent Auto 3.2 % (0-4.4); Hematocrit 36.7 % (37.0-47.0); Immature Granulocyte Absolute 0.02 K/mm3 (0.00-0.031); Immature Granulocyte Percent A 0.3 % (0-0.5); Lymphocytes Absolute Auto 1.32 K/mm3 (0.9-3.2); Lymphocytes Percent Auto 22.5 % (18.3-44.2); Mean Corpuscular HGB Conc 32.7 g/dl (32-36); Mean Corpuscular Hemoglobin 31.6 pg (26-34); Mean Corpuscular Volume 96.6 fl (80-100); Mean Platelet Volume 8.2 fl (7.4-10.4); Monocytes Absolute Auto 0.5 K/mm3 (0.1-0.6); Monocytes Percent Auto 9.2 % (2.6-8.5); Neutrophils Absolute Auto 3.8 K/mm3 (1.3-6.7); Neutrophils Percent Auto 64.1 % (45.5-73.1); Platelet Count Result 187 k/mm3 (150-375); Red Cell Distribution Width 13.2 % (11.5-14.5); White Blood Count 5.9 K/mm3 (4.5-10.0)
[2024-04-12 15:54] LABS: Alanine Aminotransferase 17 U/L (6-35); Albumin Level 4.1 g/dL (3.5-5.1); Alkaline Phosphatase 145 U/L (38-126); Anion Gap 9 mmol/L (4-12); Aspartate Amino Transferase 26 U/L (14-36); Bilirubin,Total 0.6 mg/dL (0.2-1.3); Blood Urea Nitrogen 17 mg/dL (7-17); Calcium 9.4 mg/dL (8.4-10.2); Carbon Dioxide 26 mmol/L (22-30); Chloride 104 mmol/L (98-107); Creatine Kinase 32 U/L (30-135); Estimated CRCL calculation 48 ml/min; Estimated Glomerular Filt Rate > 60; Glucose 104 mg/dL (65-110); Potassium 4.4 mmol/L (3.4-5.0); Sodium 139 mmol/L (137-145)
[2024-04-12 16:03] LABS: Prothrombin Time 13.7 Seconds (11.1-14.7)
[2024-04-12 16:04] LABS: Partial Thromboplastin Time 30.7 Seconds (22.3-36.8)
[2024-04-12 16:05] LABS: Troponin I < 0.012 ng/mL (0.000-0.034)
[2024-04-12 16:15] LABS: Add Urine Microscopic? YES; Appearance Urine Clear (Clear); Bacteria Urine None Seen /hpf; Bilirubin Urine Negative (Negative); Blood Urine Negative (Negative); Color Urine Yellow (Yellow); Glucose Urine UA Negative (Negative); Ketones Urine Negative (Negative); Leukocyte Esterase Ur 1+ LEU/UL (Negative); Need Manual Microscopic Reviewed; Nitrate Urine Negative (Negative); Non Pathogenic Casts 0-2; Protein Urine Negative (Negative); RBC Urine 0-2 /hpf (0-2); Specific Grav Ur 1.016 (1.001-1.035); Squamous Epithelial Cell Urine None Seen /hpf (Few); WBC Urine 0-5 /hpf (0-3)
== END 2024-04-12 17:16 | disposition home or self-care (01) ==
PROVIDERS: Emergency Provider Emergency Medicine; PCP Family Medicine
DX: S09.90XA Unspecified injury of head, initial encounter (principal); W18.30XA Fall on same level, unspecified, initial encounter; Z79.82 Long term (current) use of aspirin
CPT/HCPCS: 36415; 70450; 71045; 72125; 80053; 81001; 82550; 84484; 85025; 85610; 85730; 87086; 93005; 99284

== ENCOUNTER 2025-04-26 13:06 | Emergency (ER) | payer MEDICARE, SELFPAY ==
--- NOTE | 2025-04-26 13:07 | ED.FEMALEGU ---
HPI - Female Genitourinary General Chief complaint: Urogenital-Female Stated complaint: UTI Time Seen by Provider: 04/26/25 13:07 Source: patient Mode of arrival: ambulatory Limitations: no limitations History of Present Illness HPI Narrative: Vincent is an 89 year old female patient presenting to the clinic today with c/o possible UTI x 5-6 days She reports she has had confusion, foul urine smell, and increase in incontinence. Denies any fever, chills, body aches, abdomen pain, or back pain. Related Data Home Medications ?Medication ?Instructions ?Recorded ?Confirmed ?Last Taken ?Type acetaminophen 325 mg tablet 650 mg PO TID PRN Pain 01/02/24 08/21/24 Unknown History aspirin 81 mg tablet,delayed 81 mg PO DAILY 01/02/24 08/21/24 Unknown History release lisinopril 40 mg tablet 40 mg PO DAILY 01/02/24 08/21/24 Unknown History vit C 250 mg-vit E 90 mg-zinc 40 2 tablet PO DAILY 01/02/24 08/21/24 Unknown History mg-copper 1 fw-usvhmz-jqyndw capsule (PreserVision AREDS-2) Allergies Allergy/AdvReac Type Severity Reaction Status Date / Time shrimp Allergy Nausea and Verified 04/26/25 13:10 Vomiting morphine AdvReac Nausea and Verified 04/26/25 13:10 Vomiting Review of Systems Review of Systems: Pertinent positives per HPI. Patient denies any fever, chills, rash, headache, visual changes, dizziness, cough, runny nose, sore throat, shortness of breath, chest pain, palpitations, nausea, vomiting, diarrhea, constipation, abdominal pain PMFSH Past Medical History Medical History Depression Elevated fasting glucose UTI (urinary tract infection) Closed hip fracture Impingement syndrome, shoulder, left At risk for falls Leg weakness, bilateral Surgical History Surgical History History of hip surgery (~04/26/23) Closed Reduction Percutaneous Pinning Lt Hip Femoral Neck Fracture Family History Family History Other Acute myocardial infarction Family history of coronary artery disease Social History Social History Smoking status: Never smoker Alcohol intake: never Substance use: never Substance use type: does not use Do You Feel Safe in your Home?: Yes Lack of Transportation: No Lack of Food: Never True Current Housing: I Have Housing Concerned About Future Housing: No Difficulty Paying Gas/Electric Bills: No Difficulty Paying for Meds: No Currently Unemployed: No Education: Master's Degree or Higher Difficulty w/ Childcare or Family Care: No Spiritual care concerns: No Comments At the time of my signature, I reviewed and agree with the nursing past medical, surgical, social, and family history. There is no relevant family history pertinent to the patient complaint. Exam Narrative: General: Well-developed, well nourished, in no apparent distress. Head: Normocephalic, atraumatic. Cardio: Regular rate and rhythm, s1 and s2 normal, no murmur appreciated. Resp: Clear to auscultation bilaterally, no rhonchi, rales, wheezing or rubs. Abdomen: Soft, pliable, bowel sounds present in all quadrants, non-tender to palpation, no organomegly, no CVAT tenderness. Neuro: Alert and oriented x4 with normal speech, no focal deficits. Course Course Emergency Course: Portions of this record may have been created with voice recognition software. Level of Care: Express Care Visit Vital Signs Vital signs: Vital signs reviewed MDM - Female Genitourinary MDM Narrative Medical decision making narrative: At the time of visit patient is resting comfortably on the exam table. Patient appears to be nontoxic. C/o possible UTI x 5-6 days She reports she has had confusion, foul urine smell, and increase in incontinence. Denies any fever, chills, body aches, abdomen pain, or back pain. On exam patient has soft, pliable, nondistended abdomen, no organomegaly, bowel sounds present 4 quadrants, nontender to palpation, no CVAT tenderness. Labs: Urine dip positive for leukocytes, nitrates, protein, and trace of ketone Plan: I suspect patient has UTI. Prescription for cephalexin was sent to the pharmacy. Supportive measures were discussed with the patient and they voiced understanding discharge instructions and agrees to treatment plan. Return precautions reviewed Differential Diagnosis Differential diagnosis: Likely urinary tract infection, cystitis and other (Acute confusion due to UTI) Discharge Plan Discharge Clinical Impression: Acute UTI Patient Disposition: Home Condition: Stable Instructions: Antibiotic Form, Urinary Tract Infection in Older Adults (ED) Additional Instructions: Increase fluids and stay well hydrated Wipe front to back. May use wet wipes. Avoid tub baths If sexually active- pee before and after intercourse. Wear cotton panties Avoid tight clothing up against the genitals Follow up with your PCP in 1 week if symptoms persist. Patient Language: Romanian Prescriptions: New cephalexin 500 mg capsule 500 mg PO Q12H 7 Days Qty: 14 0RF No Action ketoconazole 2 % cream 1 applic topical BID Qty: 60 0RF mupirocin [Centany] 2 % ointment 1 applic topical BID Qty: 22 1RF tacrolimus 0.1 % ointment 1 applic topical BID Qty: 100 1RF amlodipine 5 mg tablet 5 mg PO DAILY Qty: 90 1RF pravastatin 40 mg tablet See Rx Instructions .ROUTE .COMPLEX Qty: 30 2RF Dose Instruction: TAKE 1 TABLET BY MOUTH EVERY DAY AT BEDTIME Rx Instructions: TAKE 1 TABLET BY MOUTH EVERY DAY AT BEDTIME atenolol 50 mg tablet See Rx Instructions .ROUTE .COMPLEX Qty: 90 0RF Dose Instruction: TAKE 1 TABLET BY MOUTH EVERY MORNING Rx Instructions: TAKE 1 TABLET BY MOUTH EVERY MORNING lorazepam 0.5 mg tablet 1 mg PO QHS Qty: 90 0RF Rx Instructions: QHS acetaminophen 325 mg Tablet 650 mg PO TID PRN (Reason: Pain) PreserVision AREDS-2 250-90-40-1 mg Capsule 2 tablet PO DAILY Rx Instructions: Take 2 capsules by mouth daily aspirin 81 mg tablet,delayed release (DR/EC) 81 mg PO DAILY Rx Instructions: take aspirin bid x 2 weeks then once daily lisinopril 40 mg tablet 40 mg PO DAILY Rx Instructions: TAKE 1 TABLET BY MOUTH EVERY MORNING Follow-up/Referrals: Kojo Norwood MD [Primary Care Provider, Family Practice] Time of Disposition: 13:32 Quality NIHSS Nursing Documentation ED NIHSS nursing documentation: reviewed/agree
[2025-04-26 13:18] VITALS: BP 131/64; PULSE 65; RESP 16; TEMP 36.7; O2SAT 98
[2025-04-26 13:32] LABS: EDUAAPPEAR Cloudy; EDUABILI Negative (Negative); EDUABLOOD Negative (Negative); EDUACOLOR1 Dark; EDUAGLUCOSE Negative (Negative); EDUAKETONE Trace (Negative); EDUALEUKO Trace (Negative); EDUANITRATE Positive (Negative); EDUAPH 5.5; EDUAPROTEIN 1+ (Negative); EDUASPGRAVITY 1.025; EDUAUROBILI 1.0
== END 2025-04-26 13:34 | disposition home or self-care (01) ==
PROVIDERS: Emergency Provider Nurse Practitioner Family; PCP Family Medicine
DX: N39.0 Urinary tract infection, site not specified (principal); Z79.82 Long term (current) use of aspirin
CPT/HCPCS: 81003; 87086; 87186; 99213; G0463

== ENCOUNTER 2025-06-11 19:51 | Emergency (ER) | payer MEDICARE, SELFPAY ==
--- NOTE | 2025-06-11 19:56 | ED.FEMALEGU ---
HPI - Female Genitourinary General Chief complaint: Urogenital-Female Stated complaint: possible UTI Time Seen by Provider: 06/11/25 20:01 Source: patient and RN notes reviewed Mode of arrival: ambulatory Limitations: no limitations History of Present Illness HPI Narrative: 89-year-old female presents with concern for urinary tract infection. Her daughter reports she has been confused today and more tired than usual. She reports history of UTI. Patient denies any abdominal pain, back pain, fatigue, fever, body aches, chills, sweats. Denies dysuria, frequency urgency. Her daughter says she is not having incontinence. MD elicited complaint: UTI Related Data Home Medications ?Medication ?Instructions ?Recorded ?Confirmed ?Last Taken ?Type acetaminophen 325 mg tablet 650 mg PO TID PRN Pain 01/02/24 06/11/25 Unknown History aspirin 81 mg tablet,delayed 81 mg PO DAILY 01/02/24 06/11/25 Unknown History release vit C 250 mg-vit E 90 mg-zinc 40 2 tablet PO DAILY 01/02/24 06/11/25 Unknown History mg-copper 1 [id number] capsule (PreserVision AREDS-2) Allergies Allergy/AdvReac Type Severity Reaction Status Date / Time shrimp Allergy Nausea and Verified 06/11/25 19:56 Vomiting morphine AdvReac Nausea and Verified 06/11/25 19:56 Vomiting Review of Systems Review of Systems: CONSTITUTIONAL: Denies malaise, chills, sweats, or fever. Reports fatigue and confusion CARDIOVASCULAR: Denies chest pain, palpitations, or edema. RESPIRATORY: Denies cough or dyspnea. GASTROINTESTINAL: Denies abdominal pain, nausea, vomiting, diarrhea GENITOURINARY: Denies dysuria, frequency, urgency, suprapubic pressure. Denies flank pain or hematuria. SKIN: Denies rash or itching. MUSCULOSKELETAL: Denies back pain or myalgia. All systems reviewed & are unremarkable except as noted in HPI and below PMFSH Past Medical History Medical History Depression Elevated fasting glucose UTI (urinary tract infection) Closed hip fracture Impingement syndrome, shoulder, left At risk for falls Leg weakness, bilateral Surgical History Surgical History History of hip surgery (~04/26/23) Closed Reduction Percutaneous Pinning Lt Hip Femoral Neck Fracture Family History Family History Other Acute myocardial infarction Family history of coronary artery disease Social History Social History Smoking status: Never smoker Alcohol intake: never Substance use: never Substance use type: does not use Lack of Transportation: No Lack of Food: Never True Current Housing: I Have Housing Concerned About Future Housing: No Difficulty Paying Gas/Electric Bills: No Difficulty Paying for Meds: No Currently Unemployed: No Education: Master's Degree or Higher Difficulty w/ Childcare or Family Care: No Spiritual care concerns: No Comments At time of signature, agree with nursing past medical, surgical, social and family history. There is no relevant family history pertinent to the presenting complaint Exam Narrative: GENERAL: Well-appearing, well-nourished, and in no acute distress. HEAD: Normocephalic. EYES: PERRLA, conjunctivae clear. NECK: Supple. No lymphadenopathy CHEST: Clear to auscultation. No respiratory distress. HEART: Regular rate and rhythm. ABDOMEN: Soft, nontender upon palpation, nondistended, no palpable or pulsatile masses, no guarding. No CVA tenderness SKIN: Warm, dry, no rash. NEURO: Alert and oriented x3. PSYCH: Normal mood and affect Course Course Emergency Course: Patient is aware of diagnosis, understands and agrees to treatment plan. Anticipatory guidance given. Patient agrees to follow-up as directed and is aware of reasons to seek care at the emergency department. Portions of this record may have been created with voice recognition software Level of Care: [facility] Visit MDM Differential Diagnosis Differential Diagnosis: I evaluated this patient in the [facility] care. History is obtained from patient who is an independent historian and physical exam was performed.? Available medical records were reviewed. ? Exam findings and relevant testing show no acute concerns or changes; patient is non-toxic appearing and is in no distress. ? Exam findings and UA show no acute concerns or changes; patient is non-toxic appearing and is in no distress. No CMT, adnexal tenderness, or evidence of pelvic etiology. Differential diagnosis include pyelonephritis, STI, cystitis, urinary tract infection, acute abdomen, gastroenteritis, yeast infection Differential diagnosis and treatment plan were discussed with the patient. Patient agrees with discussion and after shared medical decision making agrees with plan of care. All questions were answered to the patient's satisfaction. Patient is appropriate for outpatient treatment and follow-up. Discharge Plan Discharge Clinical Impression: Symptoms of urinary tract infection Patient Disposition: Home Condition: Stable Instructions: Antibiotic Form, Urinary Tract Infection in Women (ED) Additional Instructions: We will send a urine culture to the lab; if the culture identifies an organism that the prescribed antibiotic will not treat, you will receive a phone call from an urgent care staff member and an appropriate antibiotic will be prescribed. -Your symptoms should begin to improve within a day of starting antibiotics. But you should finish all the antibiotic pills you get. Otherwise your infection might come back. -Also recommend: increase water intake. Tylenol/ibuprofen as needed for pain or fever -Follow-up with your primary care provider for urine recheck or seek ER visit if condition worsens with high fever, nausea, vomiting and severe back pain. Patient Language: Czech Prescriptions: New ciprofloxacin HCl 500 mg tablet 500 mg PO Q12H 5 Days Qty: 10 0RF No Action lisinopril 20 mg tablet 20 mg PO DAILY Qty: 90 0RF pravastatin 40 mg tablet See Rx Instructions .ROUTE .COMPLEX Qty: 30 1RF Dose Instruction: TAKE 1 TABLET BY MOUTH EVERY DAY AT BEDTIME Rx Instructions: TAKE 1 TABLET BY MOUTH EVERY DAY AT BEDTIME atenolol 50 mg tablet See Rx Instructions .ROUTE .COMPLEX Qty: 90 0RF Dose Instruction: TAKE 1 TABLET BY MOUTH EVERY MORNING Rx Instructions: TAKE 1 TABLET BY MOUTH EVERY MORNING lorazepam 0.5 mg tablet 1 mg PO QHS Qty: 90 0RF Rx Instructions: QHS amlodipine 5 mg tablet 5 mg PO DAILY Qty: 90 1RF acetaminophen 325 mg Tablet 650 mg PO TID PRN (Reason: Pain) PreserVision AREDS-2 250-90-40-1 mg Capsule 2 tablet PO DAILY Rx Instructions: Take 2 capsules by mouth daily aspirin 81 mg tablet,delayed release (DR/EC) 81 mg PO DAILY Rx Instructions: take aspirin bid x 2 weeks then once daily Follow-up/Referrals: Kojo Norwood MD [Primary Care Provider, [facility]] Time of Disposition: 20:10
[2025-06-11 19:58] VITALS: BP 172/75; PULSE 70; RESP 16; TEMP 36.4; O2SAT 99
[2025-06-11 20:08] LABS: EDUAAPPEAR Clear; EDUABILI Negative (Negative); EDUABLOOD Negative (Negative); EDUACOLOR1 Yellow; EDUAGLUCOSE Negative (Negative); EDUAKETONE Trace (Negative); EDUALEUKO Trace (Negative); EDUANITRATE Negative (Negative); EDUAPH 6.5; EDUAPROTEIN Negative (Negative); EDUASPGRAVITY 1.025; EDUAUROBILI 2.0
== END 2025-06-11 20:21 | disposition home or self-care (01) ==
PROVIDERS: Emergency Provider Nurse Practitioner; PCP Family Medicine
DX: R39.9 Unspecified symptoms and signs involving the genitourinary system (principal); Z79.82 Long term (current) use of aspirin
CPT/HCPCS: 81003; 87086; 99213; G0463